=== PATIENT | female | born 1955 | race Two or more races ===

== ENCOUNTER 2019-06-27 08:53 | Inpatient (IN) | payer SELFPAY ==
[~2019-06-27] VITALS: Ht 162.6 cm; Wt 83.5 kg
[2019-06-27] VITALS (11 sets, daily range): BP systolic 97–135; BP diastolic 32–63
[2019-06-27] MEDS ORDERED: SODIUM CHLORIDE 0.9% 1,000 ML IVB ONE (09:04)
[2019-06-27] MEDS ORDERED: OCTREOTIDE ACETATE 100 MCG in SODIUM CHL 0.9% 50 ML IV ONE (09:15)
[2019-06-27] MEDS: OCTREOTIDE ACETATE 500 MCG in SODIUM CHL 0.9% 99 ML IV SCH ×2 (09:30→19:28)
[2019-06-27] MEDS ORDERED: PANTOPRAZOLE 40 MG/10 ML VIAL INJ IV ONE ×3 (09:30→12:15)
[2019-06-27 09:36] LABS: Basophils # (auto) 0.1 uL; Basophils % (auto) 0.6 % (0.0-2.0); Eosinophils # (auto) 0.4 uL; Lymphocytes # (auto) 3.4 uL
[2019-06-27 09:38] LABS: Eosinophils % (auto) 2.4 % (0.0-7.0); Hematocrit 21.2 % (36.0-46.0); Lymphocytes % (auto) 20.6 % (10.0-50.0); Mean Corpuscular Hemoglobin 26.3 pg (28.0-32.0); Mean Corpuscular Hgb Conc. 32.2 g/dL (32.0-36.0); Mean Corpuscular Volume 81.9 fL (80.0-100.0); Monocytes # (auto) 0.8 uL; Monocytes % (auto) 4.9 % (0.0-12.0); Neutrophils # (auto) 11.9 uL; Neutrophils % (auto) 71.5 % (37.0-80.0); Platelet Count (auto) 98 10^3/uL (140-450); Red Blood Cells 2.59 10^6/uL (4.0-5.20); Red Cell Distribution Width 16.2 % (11.8-14.3); White Blood Cell 16.7 10^3/uL (4.4-10.8)
[2019-06-27] MEDS ORDERED: NOREPINEPHRINE 8 MG/250ML KIT 250 ML IV ONE (09:39)
[2019-06-27 09:42] LABS: Hemoglobin 6.8 g/dL (12.2-16.2)
[2019-06-27] MEDS: NOREPINEPHRINE 8 MG/250ML KIT 250 ML IV SCH (09:47)
[2019-06-27 09:53] LABS: Albumin 2.4 g/dL (3.4-5.0); BUN/Creatinine Ratio 34.5; Calcium 8.1 mg/dL (8.5-10.1)
[2019-06-27 09:56] LABS: Bilirubin, Total 0.5 mg/dL (0.2-1.0); Total Protein 5.9 g/dL (6.4-8.2)
[2019-06-27 10:04] LABS: INR 1.18 (0.9-1.15); Partial Thromboplastin Time 36.3 sec (23.64-32.05)
[2019-06-27] MEDS ORDERED: ETOMIDATE (2MG/ML) 20ML VIAL IV ONE ×2 (10:48→11:00)
[2019-06-27] MEDS ORDERED: SUCCINYLCHOLINE CHLORIDE 20 MG/ML 10ML VIAL IV ONE ×2 (10:49→11:00)
[2019-06-27] MEDS: MIDAZOLAM DRIP 50 mg/50mL 50 ML IV SCH (11:11)
[2019-06-27] MEDS ORDERED: EPINEPHrine HCL 1 MG/10 ML SYRG ONE (11:24)
[2019-06-27] MEDS ORDERED: PROPOFOL 100 ML IV ONE (11:27)
[2019-06-27] MEDS: PROPOFOL 100 ML IV SCH (11:30)
[2019-06-27] MEDS ORDERED: MORPHINE SULF INJ 2 MG/ML SYRINGE 1ML IV PRN (11:45)
[2019-06-27] MEDS ORDERED: NITROGLYCERIN 0.4 MG SL TAB SL PRN (11:45)
[2019-06-27] MEDS ORDERED: ALBUTEROL SULF 2.5 MG/0.5ML(0.5%) NEB SOLN NEB PRN (11:45)
[2019-06-27] MEDS ORDERED: PROMETHAZINE HCL 25 MG/ML 1ML IV PRN (11:45)
[2019-06-27] MEDS ORDERED: phytonadione 5 MG in SODIUM CHL 0.9% 50 ML IV ONE (11:45)
[2019-06-27] MEDS: SODIUM CHLORIDE 0.9% 1,000 ML IV SCH ×2 (12:21→19:44)
[2019-06-27 13:48] LABS: Hemoglobin 7.4 g/dL (12.2-16.2)
[2019-06-27 13:50] LABS: Hematocrit 21.9 % (36.0-46.0)
[2019-06-27] MEDS: ALBUTEROL SULF 2.5 MG/0.5ML(0.5%) NEB SOLN NEB SCH ×3 (14:07→23:50)
[2019-06-27] MEDS: metroNIDAZOLE 500MG/100ML 100 ML IV SCH ×2 (16:32→22:08)
[2019-06-27 18:35] LABS: Hematocrit 19.6 % (36.0-46.0)
[2019-06-27 18:40] LABS: Hemoglobin 6.6 g/dL (12.2-16.2)
[2019-06-27] MEDS: PANTOPRAZOLE 40 MG/10 ML VIAL INJ IV SCH (22:15)
[2019-06-28] VITALS (11 sets, daily range): BP systolic 80–136; BP diastolic 26–53
[2019-06-28 00:48] LABS: Hematocrit 26.2 % (36.0-46.0); Hemoglobin 8.5 g/dL (12.2-16.2)
[2019-06-28] MEDS ORDERED: ACETAMINOPHEN 120 MG RECT SUPP PR ONE (03:00)
[2019-06-28] MEDS ORDERED: OCTREOTIDE ACETATE 500 MCG/ML VL ONE (03:37)
[2019-06-28] MEDS: SODIUM CHLORIDE 0.9% 1,000 ML IV SCH (03:46)
[2019-06-28] MEDS: OCTREOTIDE ACETATE 500 MCG in SODIUM CHL 0.9% 99 ML IV SCH ×3 (05:18→19:05)
[2019-06-28 06:12] LABS: Basophils # (auto) 0.1 uL; Basophils % (auto) 0.8 % (0.0-2.0); Mean Corpuscular Hgb Conc. 33.8 g/dL (32.0-36.0); Neutrophils # (auto) 9.4 uL; Nucleated Red Blood Cells % 0.1 %; Platelet Count (auto) 102 10^3/uL (140-450)
[2019-06-28 06:15] LABS: Eosinophils # (auto) 0.6 uL; Eosinophils % (auto) 4.5 % (0.0-7.0); Hematocrit 23.3 % (36.0-46.0); Hemoglobin 7.9 g/dL (12.2-16.2); Lymphocytes # (auto) 2.2 uL; Lymphocytes % (auto) 15.4 % (10.0-50.0); Mean Corpuscular Hemoglobin 27.5 pg (28.0-32.0); Mean Corpuscular Volume 81.4 fL (80.0-100.0); Monocytes # (auto) 1.7 uL; Monocytes % (auto) 12.1 % (0.0-12.0); Neutrophils % (auto) 67.2 % (37.0-80.0); Red Blood Cells 2.86 10^6/uL (4.0-5.20); Red Cell Distribution Width 15.7 % (11.8-14.3)
[2019-06-28 06:18] LABS: INR 1.17 (0.9-1.15); Partial Thromboplastin Time 36.4 sec (23.64-32.05)
[2019-06-28] MEDS: metroNIDAZOLE 500MG/100ML 100 ML IV SCH ×3 (06:19→22:12)
[2019-06-28 06:29] LABS: Albumin 2.3 g/dL (3.4-5.0); BUN/Creatinine Ratio 36.4; Calcium 7.2 mg/dL (8.5-10.1); Potassium 3.6 mmol/L (3.5-5.1)
[2019-06-28 06:32] LABS: Bilirubin, Total 1.2 mg/dL (0.2-1.0); Total Protein 5.6 g/dL (6.4-8.2)
[2019-06-28] MEDS: ALBUTEROL SULF 2.5 MG/0.5ML(0.5%) NEB SOLN NEB SCH ×2 (06:35→18:00)
[2019-06-28] MEDS: PROPOFOL 100 ML IV SCH ×4 (08:29→19:05)
[2019-06-28] MEDS: MIDAZOLAM DRIP 50 mg/50mL 50 ML IV SCH ×3 (08:33→16:33)
[2019-06-28] MEDS: LEVOFLOXACIN 500MG 100 ML IV SCH (10:06)
[2019-06-28] MEDS: PANTOPRAZOLE 40 MG/10 ML VIAL INJ IV SCH ×2 (10:06→22:12)
--- NOTE | 2019-06-28 11:30 | NUR ---
WOUND CARE NOTE: PATIENT ADMITTED TO [facility] WITH DIAGNOSIS OF UPPER GI BLEED, PNA, HYPOTENSION. CURRENT BUCKY SCORE IS 10. SHE IS INTUBATED, SEDATED. SPECIALTY AIR BED HAS BEEN ORDERED. PATIENT TO BE PLACED, PENDING DELIVERY BY ROYA MAO. PATIENT IS WOUND FREE AT THIS TIME PER BEDSIDE NURSEESTRELLA. SKIN/WOUND CARE PLAN IMPLEMENTED. RECOMMEND: FREQUENT TURN SCHEDULE Q 2 HOURS, PRN CONDITION PERMITS, WITH PRESSURE REDISTRIBUTION USING PILLOWS/WEDGES, BID/PRN APPLICATION WITH MOISTURE BARRIER CREAM, OPTIFOAM GENTLE SACRAL DRESSING PREVENTATIVE, SPECIALTY AIR MATTRESS, DIETARY CONSULT FOR LOW BUCKY, CONTINUED MONITORING BY WOUND CARE TEAM.
[2019-06-28] MEDS ORDERED: VANCOMYCIN PER PHARMACY 0 MG IV SCH (12:00)
[2019-06-28] MEDS ORDERED: VANCOMYCIN 1GM/250ML 250 ML IV ONE (12:15)
[2019-06-28] MEDS: D5W/SOD CHL 0.45% 1,000 ML IV SCH (13:10)
[2019-06-28] MEDS: NOREPINEPHRINE 8 MG/250ML KIT 250 ML IV SCH ×2 (13:10→18:12)
[2019-06-28] MEDS ORDERED: ACETAMINOPHEN 650 MG RECT SUPP PR ONE (17:43)
[2019-06-28] MEDS ORDERED: ACETAMINOPHEN 650 mg PER 20 mL UD PO PRN (17:45)
[2019-06-28 19:48] LABS: Basophils # (auto) 0.1 uL; Eosinophils # (auto) 0.7 uL; Hemoglobin 7.7 g/dL (12.2-16.2)
[2019-06-28 19:51] LABS: Basophils % (auto) 0.7 % (0.0-2.0); Eosinophils % (auto) 4.5 % (0.0-7.0); Hematocrit 22.7 % (36.0-46.0); Lymphocytes # (auto) 2.4 uL; Lymphocytes % (auto) 15.7 % (10.0-50.0); Mean Corpuscular Hemoglobin 27.7 pg (28.0-32.0); Mean Corpuscular Hgb Conc. 34.1 g/dL (32.0-36.0); Mean Corpuscular Volume 81.3 fL (80.0-100.0); Monocytes # (auto) 2.2 uL; Monocytes % (auto) 14.5 % (0.0-12.0); Neutrophils % (auto) 64.6 % (37.0-80.0); Nucleated Red Blood Cells % 0.3 %; Platelet Count (auto) 86 10^3/uL (140-450); Red Blood Cells 2.79 10^6/uL (4.0-5.20); Red Cell Distribution Width 15.8 % (11.8-14.3); White Blood Cell 15.4 10^3/uL (4.4-10.8)
[2019-06-29] VITALS (12 sets, daily range): BP systolic 89–109; BP diastolic 36–61
[2019-06-29] MEDS: ALBUTEROL SULF 2.5 MG/0.5ML(0.5%) NEB SOLN NEB SCH ×4 (00:36→18:25)
[2019-06-29] MEDS: D5W/SOD CHL 0.45% 1,000 ML IV SCH ×2 (03:31→13:18)
[2019-06-29] MEDS: metroNIDAZOLE 500MG/100ML 100 ML IV SCH ×3 (06:38→22:49)
[2019-06-29 07:35] LABS: Basophils # (auto) 0.1 uL; Eosinophils # (auto) 0.9 uL; Eosinophils % (auto) 5.5 % (0.0-7.0); Hemoglobin 7.7 g/dL (12.2-16.2)
[2019-06-29 07:39] LABS: Basophils % (auto) 0.6 % (0.0-2.0); Hematocrit 22.8 % (36.0-46.0); Lymphocytes # (auto) 2.7 uL; Lymphocytes % (auto) 16.5 % (10.0-50.0); Mean Corpuscular Hemoglobin 27.9 pg (28.0-32.0); Mean Corpuscular Hgb Conc. 33.9 g/dL (32.0-36.0); Mean Corpuscular Volume 82.4 fL (80.0-100.0); Monocytes # (auto) 2.5 uL; Monocytes % (auto) 14.9 % (0.0-12.0); Neutrophils # (auto) 10.4 uL; Neutrophils % (auto) 62.5 % (37.0-80.0); Nucleated Red Blood Cells % 0.2 %; Platelet Count (auto) 90 10^3/uL (140-450); Red Blood Cells 2.77 10^6/uL (4.0-5.20); Red Cell Distribution Width 16.3 % (11.8-14.3); White Blood Cell 16.6 10^3/uL (4.4-10.8)
[2019-06-29 07:53] LABS: Calcium 7.2 mg/dL (8.5-10.1); Potassium 3.6 mmol/L (3.5-5.1)
[2019-06-29 07:58] LABS: BUN/Creatinine Ratio 20.2; Bilirubin, Total 1.1 mg/dL (0.2-1.0); Total Protein 5.5 g/dL (6.4-8.2)
[2019-06-29] MEDS: VANCOMYCIN 1GM/250ML 250 ML IV SCH (09:00)
[2019-06-29] MEDS: PROPOFOL 100 ML IV SCH ×3 (09:15→21:20)
[2019-06-29] MEDS: LEVOFLOXACIN 500MG 100 ML IV SCH (10:04)
[2019-06-29] MEDS: PANTOPRAZOLE 40 MG/10 ML VIAL INJ IV SCH ×2 (10:10→22:49)
[2019-06-29] MEDS: MIDAZOLAM DRIP 50 mg/50mL 50 ML IV SCH ×3 (10:11→20:25)
[2019-06-29] MEDS: OCTREOTIDE ACETATE 500 MCG in SODIUM CHL 0.9% 99 ML IV SCH ×2 (13:19→19:42)
[2019-06-29] MEDS: LACTULOSE 20Gm/30ML SOLN PR SCH ×3 (14:17→23:50)
--- NOTE | 2019-06-29 14:47 | NUR ---
Nutrition consult/assessment Notes please see attached link for complete assessment Est. Needs ABW 76 [id number] kcal (20-23 kcal/kgBW), 45-61 gms pro (0.6-0.8 gms/kgBW r/t elev ammonia severe hypoalb). Will continue to monitor pertinent labs and reassess nutrient need prn Addendum: 06/29/19 at [address] Amended: Links added.
[2019-06-29 18:33] LABS: Hematocrit 25.8 % (36.0-46.0); Hemoglobin 8.4 g/dL (12.2-16.2)
[2019-06-29] MEDS: NOREPINEPHRINE 8 MG/250ML KIT 250 ML IV SCH (19:42)
[2019-06-29] MEDS: ACETAMINOPHEN 650 MG RECT SUPP PR PRN (21:15)
[2019-06-29 22:35] LABS: Hematocrit 23.5 % (36.0-46.0); Hemoglobin 7.8 g/dL (12.2-16.2)
[2019-06-30] VITALS (21 sets, daily range): BP systolic 89–133; BP diastolic 37–68
[2019-06-30] MEDS: VANCOMYCIN 1GM/250ML 250 ML IV SCH ×2 (00:52→20:13)
[2019-06-30] MEDS: NOREPINEPHRINE 8 MG/250ML KIT 250 ML IV SCH ×4 (01:33→16:30)
[2019-06-30] MEDS: MIDAZOLAM DRIP 50 mg/50mL 50 ML IV SCH ×3 (01:34→11:25)
[2019-06-30] MEDS: PROPOFOL 100 ML IV SCH ×3 (01:34→11:26)
[2019-06-30] MEDS ORDERED: OCTREOTIDE ACETATE 500 MCG/ML VL ONE (02:18)
[2019-06-30] MEDS: ALBUTEROL SULF 2.5 MG/0.5ML(0.5%) NEB SOLN NEB SCH ×4 (02:38→18:35)
[2019-06-30] MEDS: D5W/SOD CHL 0.45% 1,000 ML IV SCH ×2 (03:02→19:04)
[2019-06-30] MEDS: OCTREOTIDE ACETATE 500 MCG in SODIUM CHL 0.9% 99 ML IV SCH ×2 (03:06→13:28)
[2019-06-30 05:29] LABS: Basophils # (auto) 0.1 uL; Eosinophils # (auto) 0.8 uL; Neutrophils # (auto) 11.9 uL; Neutrophils % (auto) 63.6 % (37.0-80.0); White Blood Cell 18.8 10^3/uL (4.4-10.8)
[2019-06-30 05:34] LABS: Basophils % (auto) 0.4 % (0.0-2.0); Eosinophils % (auto) 4.3 % (0.0-7.0); Hematocrit 23.6 % (36.0-46.0); Hemoglobin 7.9 g/dL (12.2-16.2); Lymphocytes # (auto) 3.1 uL; Lymphocytes % (auto) 16.7 % (10.0-50.0); Mean Corpuscular Hemoglobin 27.8 pg (28.0-32.0); Mean Corpuscular Hgb Conc. 33.7 g/dL (32.0-36.0); Mean Corpuscular Volume 82.7 fL (80.0-100.0); Monocytes # (auto) 2.8 uL; Nucleated Red Blood Cells % 0.2 %; Platelet Count (auto) 96 10^3/uL (140-450); Red Blood Cells 2.85 10^6/uL (4.0-5.20); Red Cell Distribution Width 16.6 % (11.8-14.3)
[2019-06-30 05:58] LABS: Albumin 1.9 g/dL (3.4-5.0); BUN/Creatinine Ratio 15.1; Calcium 6.9 mg/dL (8.5-10.1); Potassium 3.9 mmol/L (3.5-5.1); Total Protein 5.4 g/dL (6.4-8.2)
[2019-06-30] MEDS: metroNIDAZOLE 500MG/100ML 100 ML IV SCH ×3 (06:08→22:48)
[2019-06-30] MEDS: LACTULOSE 20Gm/30ML SOLN PR SCH ×3 (07:47→20:12)
[2019-06-30] MEDS: PANTOPRAZOLE 40 MG/10 ML VIAL INJ IV SCH ×2 (09:43→22:48)
[2019-06-30] MEDS: LEVOFLOXACIN 500MG 100 ML IV SCH (09:43)
[2019-06-30] MEDS: ACETAMINOPHEN 650 MG RECT SUPP PR PRN (16:31)
--- NOTE | 2019-06-30 20:10 | NUR ---
Admit to ICU from ER on vent BACA,GRAEMEAadmitted to ICU via gurney on rod buster, intubated and being bagged by Respiratory Therapist. Patient transfered to bed, connected to mechanical ventilator by therapist, VICTOR M at bedside. Patient connected to ICU monitoring.
--- NOTE | 2019-06-30 20:15 | NUR ---
ASSESS RECEIVED PT ON MECHANICAL VENTILATOR ON NO SEDATION. PT BREATHING OVER VENTILATOR IN HIGH 30'S BUT DOES NOT AWAKEN AND DOES NOT RESPOND TO ANY NOXIOUS STIMULI. HYPOACTIVE COUGH/GAG. PUPILS ARE 4 SLUGGISH, ROUND AND REACTIVE TO LIGHT. FULL ASSESSMENT DONE, SEE INTERVENTIONS. ABDOMEN LARGE, ROUND AND FIRM WITH HYPOACTIVE BOWEL SOUNDS. FLEXI- SEAL IN PLACE WITH DARK BROWN/REDDISH LIQUID STOOL DRAINING. DOW CATHETER IN PLACE DRAINING TO GRAVITY, SECURED BELOW BLADDER AND FREE OF KINKS. PT ON LEVOPHED GTT AT 27MCG/HR INFUSING THROUGH LEFT SUBCLAVIAN TLC. PT ALSO WITH RIGHT UPPER MIDLINE. SKIN INTACT. NON-BLANCHABLE REDNESS NOTED TO SACRAL AREA, Z-GUARD APPLIED AND OPTIFOAM APPLIED. ORAL CARE RENDERED. ALL BONY PROMINENCES OFFLOADED. NO FAMILY AT BEDSIDE. BED LOCKED IN LOWEST POSITION, PT IN FULL VIEW OF RN. NO S/S OF PAIN INDICATED.
[2019-06-30 21:23] LABS: Hematocrit 24.4 % (36.0-46.0)
[2019-06-30 21:24] LABS: Hemoglobin 8.2 g/dL (12.2-16.2)
[2019-07-01] VITALS (102 sets, daily range): BP systolic 81–169; BP diastolic 38–94
[2019-07-01] MEDS: ALBUTEROL SULF 2.5 MG/0.5ML(0.5%) NEB SOLN NEB SCH ×4 (00:19→18:25)
[2019-07-01] MEDS ORDERED: OCTREOTIDE ACETATE 100 MCG/ML VL ONE (00:39)
[2019-07-01] MEDS: OCTREOTIDE ACETATE 500 MCG in SODIUM CHL 0.9% 99 ML IV SCH ×2 (00:52→13:27)
--- NOTE | 2019-07-01 02:30 | NUR ---
HOSPITALIST PAGED; AWAITING RETURN CALL. PT'S BLOOD PRESSURE IS IN 80'S, LEVOPHED GTT MAXED
[2019-07-01 04:08] LABS: Basophils # (auto) 0.1 uL; Mean Corpuscular Hgb Conc. 33.7 g/dL (32.0-36.0); Platelet Count (auto) 116 10^3/uL (140-450)
[2019-07-01 04:11] LABS: Basophils % (auto) 0.8 % (0.0-2.0); Eosinophils # (auto) 0.5 uL; Eosinophils % (auto) 3.1 % (0.0-7.0); Hemoglobin 7.7 g/dL (12.2-16.2); Lymphocytes % (auto) 19.1 % (10.0-50.0); Mean Corpuscular Volume 83.3 fL (80.0-100.0); Nucleated Red Blood Cells % 0.3 %; Red Blood Cells 2.76 10^6/uL (4.0-5.20); White Blood Cell 15.7 10^3/uL (4.4-10.8)
[2019-07-01 04:31] LABS: Calcium 7.2 mg/dL (8.5-10.1); Potassium 4.3 mmol/L (3.5-5.1)
[2019-07-01 04:35] LABS: Albumin 1.9 g/dL (3.4-5.0); BUN/Creatinine Ratio 15.2
[2019-07-01 04:38] LABS: Bilirubin, Total 1.2 mg/dL (0.2-1.0); Total Protein 5.6 g/dL (6.4-8.2)
--- NOTE | 2019-07-01 04:51 | NUR ---
ELIMINATION/MEDICATION ADMINISTERED LACTULOSE PER MD ORDER VIA RECTALLY AND RETAINED FOR 30 MINS. BLOOD MIXED IN WITH LIQUID STOOL SEEN DRAINING OUT.
[2019-07-01] MEDS: LACTULOSE 20Gm/30ML SOLN PR SCH ×4 (05:10→18:30)
[2019-07-01] MEDS: metroNIDAZOLE 500MG/100ML 100 ML IV SCH (06:00)
--- NOTE | 2019-07-01 07:16 | NUR ---
End of shift note report given to day shift RN to assume care
[2019-07-01] MEDS: NOREPINEPHRINE 8 MG/250ML KIT 250 ML IV SCH ×3 (08:00→18:39)
--- NOTE | 2019-07-01 08:51 | NUR ---
FAMILY AT BEDSIDE PATIENT'S BROTHER EVETTE AND MOTHER AT BEDSIDE, BOTH UPDATED ON PATIENT'S STATUS. MEDICAL HISTORY OBTAINED BEST FAMILY CAN PROVIDE, EVETTE REPORTED THAT THEY FOUND OUT PATIENT WAS SICK ABOUT 3-4 MONTHS AGO AND FEEL THAT "PATIENT WAS NOT TAKING HER MEDICATION BECAUSE SHE WOULD TELL US IT MAKES HER FEEL SICK". EVETTE ALSO REPORTED THAT PATIENT MOVED IN TO LIVE WITH HE AND HIS ABOUT ONE MONTH AGO DUE TO DECREASE IN PAY FROM [facility] SHE RECENTLY RETIRED DUE TO ILLNESS. EVETTE ALSO NOTIFIED THIS NURSE THAT HE WILL BRING HOME MEDICATIONS TO UPDATE MEDICATION RECONCILIATION. ICU PAMPHLET PROVIDED AND REVIEWED WITH FAMILY, BOTH VERBALIZED UNDERSTANDING.
--- NOTE | 2019-07-01 09:15 | NUR ---
CONTACT PULMONOLOGY SPOKE WITH DR FLYNN, UPDATED ON PATIENT'S STATUS AND MORNING LABS, VS, DRIPS, VENT SETTINGS. ORDERS FOR ARTERIAL LINE INSERTION RECEIVED. DR FLYNN NOTIFIED NURSE "ER PHYSICIAN CAN INSERT IF NOT, I WILL INSERT WHEN I ARRIVE TO ICU". NO VENT CHANGES RECEIVED AT THIS TIME.
[2019-07-01] MEDS: PANTOPRAZOLE 40 MG/10 ML VIAL INJ IV SCH ×2 (10:05→22:59)
[2019-07-01] MEDS: LEVOFLOXACIN 500MG 100 ML IV SCH (10:05)
[2019-07-01] MEDS: D5W/SOD CHL 0.45% 1,000 ML IV SCH (10:06)
--- NOTE | 2019-07-01 11:00 | NUR ---
PULMONOLOGY AT BEDSIDE/ARTERIAL LINE INSERTION DR FLYNN UPDATED ON PATIENT'S STATUS, NO VENT CHANGE ORDERS RECEIVED AT THIS TIME. ARTERIAL LINE INSERTION VIA STERILE TECHNIQUE BY DR FLYNN TO RIGHT WRIST AREA. ARTERIAL LINE SECURED AND CONNECTED TO BEDSIDE MONITOR, LEVOPHED DECREASED TO 25 MCG/HR. WILL CONTINUE TO MONITOR.
[2019-07-01] MEDS: PROPOFOL 100 ML IV SCH (11:37)
--- NOTE | 2019-07-01 11:47 | NUR ---
HOSPITALIST/FAMILY DR ZELAYA AT BEDSIDE, UPDATED ON PATIENT'S STATUS INCLUDING DRIPS AND NEURO STATUS AND PATIENT CONCERN OF ABDOMINAL SWELLING. DR ZELAYA DISCUSSED PLAN OF CARE WITH PATIENT'S DAUGHTER GALLO AND PATIENT'S MOTHER AT BEDSIDE. ALL VERBALIZED UNDERSTANDING. ORDERS RECEIVED AND WILL CARRIED OUT. NEUROLOGY CONSULT CALLED IN BY BUSHEL GIRL FOR DR VUONG WITH PBX.
--- NOTE | 2019-07-01 12:23 | NUR ---
Nutrition Follow-up Notes Wt.: 80.0 kg today. Pt's intubated, non-sedated, no immediate family member at bedside except for RN during rounds this morning. Pt's s/p EGD with banding 06/27/19, currently on NPO, no order for alternate nutrition support yet at this time, per nursing. Noted pt's for active Wound and Neurology consults. Est. Needs ABW 76 [id number] kcal (20-23 kcal/kgBW), 45-61 gms pro (0.6-0.8 gms/kgBW r/t elev ammonia severe hypoalb). Will continue to monitor pertinent labs and reassess nutrient need prn Labs: Gluc 154 H, Cl 111 H, BUN 24 H, Ca 7.2 L, Tot oskar 1.2 H, AST 39 H, Ammona 71 H, Tpro 5.6 L, Alb 1.9 L Skin: Andrew scale 10, high risk, skin intact per gamma ray operator. GI: Pt had 250 ml stool output yesterday per gamma ray operator. PES: Increased nutrient needs r/t acute/chronic medical condition aeb intubated, sedated with order of NPO Altered nutrition related lab values r/t current/chronic medical condition aeb elev ammonia, severe hypoalb, hyperglcyem,ia, hypocalcemia Obesity r/t food intake more than body requirement aeb 147% IBW, BMI 30.23 kg/m2 and increased body adiposity Will continue to monitor NPO status, skin status, pertinent labs and weight trend. F/u in 2 to 3 days. Rec.: 1.) If still NPO with GIT's working, consider EN support with Jevity 1.2 Abdelrahman @ 60 ml/hr goal rate as tolerated if medically appropriate. 2.) If Albumin continues trending down with improved ammonia level, consider Prostat 1 pkt BID. 3.) If still NPO, GIT's not working, consider PN support if medically appropriate. 4.) Refer pt to RD for further nutrition education and weight monitoring upon discharge. 5.) Continue current plan of care.
--- NOTE | 2019-07-01 12:40 | NUR ---
WOUND CARE NOTE: IN TO SEE PATIENT AT THIS TIME FOR NEW SKIN INTEGRITY ISSUE. PATIENT CONTINUES TO BE INTUBATED, SEDATED. SHE IS NOW IN ICU, BED 104A. SHE HAS CURRENT BUCKY SCORE OF 10. PATIENT IS NOTED TO HAVE INTACT SKIN. SHE DOES HAVE AN INTERTRIGINOUS RASH NOTED TO THE MEDIAL SACRUM/BUTTOCKS. SKIN IS DARK RED, INTACT. ANTIFUNGAL CLEAR OINTMENT APPLIED AT THIS TIME. NEW WOUND PHOTO TAKEN FOR REFERENCE. RECOMMEND: BID/PRN ANTIFUNGAL CLEAR, CONTINUATION WITH ALL WOUND CARE ORDERS PREVIOUSLY PRESCRIBED BY MD. WOUND CARE TEAM WILL CONTINUE TO MONITOR. Addendum: 07/01/19 at 1541 by Alexia Landry RN Amended: Links added.
[2019-07-01] MEDS: PHENYLEPHRINE INJ 20 MG in SODIUM CHL 0.9% 250 ML IV SCH ×2 (13:31→21:51)
--- NOTE | 2019-07-01 14:15 | NUR ---
LACTULOSE RECEIVED FROM PHARMACY CONTACT PHARMACY EARLIER TO REQUEST LACTULOSE THAT WAS DUE AT NOON. RECEIVED AT THIS TIME AND WILL ADMINISTER.
[2019-07-01] MEDS ORDERED: CLINIMIX PER PHARMACY 0 ML IV SCH (16:00)
--- NOTE | 2019-07-01 19:03 | NUR ---
END OF SHIFT NOTE PATIENT RESTING IN BED, UNRESPONSIVE - LACTULOSE BEING ADMINISTERED, FLEXI-SEAL CLAMPED AND WILL ENDORSE UNCLAMPING OF FLEXI-SEAL AND CONTINUED CARE TO CONDUIT MECHANIC RN.
--- NOTE | 2019-07-01 19:20 | NUR ---
RECEIVED REPORT FROM DAY RN, PT. IN BED ORALLY INTUBATED WITH ETT #7.5, 21 CM @ THE LIP, CONNECTED TO A MECHANICAL VENT AT ORDERED SETTINGS, LEVO INFUSING WELL, DOW IN AND DRAINING WELL, RECTAL TUBE IN PLACED WITH DARK COLORED LOOSE STOOL. 2030- LARGE LOOSE BLACKISH STOOLS WITH MUCOID PARTICLES, CLEANED PT, KEPT HER CLEAN AND DRY.REPOSITIONED.
[2019-07-01] MEDS ORDERED: AMINO ACID INFUSION IN D10W 1,000 ML IV ONE (20:00)
[2019-07-02] VITALS (103 sets, daily range): BP systolic 78–156; BP diastolic 42–300
--- NOTE | 2019-07-02 | NUR ---
0000-LACTULOSE ENEMA GIVEN NV, HAD LARGE BLACKISH LOOSE STOOLS. 0200- CLEANED HER, KEPT HER CLEAN AND DRY., REPOSITIONED.
[2019-07-02] MEDS: LACTULOSE 20Gm/30ML SOLN PR SCH ×4 (00:22→18:15)
[2019-07-02] MEDS: ALBUTEROL SULF 2.5 MG/0.5ML(0.5%) NEB SOLN NEB SCH ×4 (00:36→18:32)
[2019-07-02] MEDS: OCTREOTIDE ACETATE 500 MCG in SODIUM CHL 0.9% 99 ML IV SCH ×3 (00:52→21:14)
--- NOTE | 2019-07-02 04:00 | NUR ---
AM CARE DONE, REPOSITIONED.
[2019-07-02 04:06] LABS: Hemoglobin 7.5 g/dL (12.2-16.2)
[2019-07-02 04:10] LABS: Hematocrit 21.8 % (36.0-46.0); Mean Corpuscular Hemoglobin 28.4 pg (28.0-32.0); Mean Corpuscular Hgb Conc. 34.3 g/dL (32.0-36.0); Mean Corpuscular Volume 82.9 fL (80.0-100.0); Platelet Count (auto) 88 10^3/uL (140-450); Red Blood Cells 2.63 10^6/uL (4.0-5.20); Red Cell Distribution Width 17.4 % (11.8-14.3); White Blood Cell 10.1 10^3/uL (4.4-10.8)
[2019-07-02 04:31] LABS: Potassium 4.2 mmol/L (3.5-5.1)
[2019-07-02 04:39] LABS: % Iron Saturation 8.1 % (15-50); Albumin 1.8 g/dL (3.4-5.0); BUN/Creatinine Ratio 21.6; Bilirubin, Total 0.9 mg/dL (0.2-1.0); Calcium 7.4 mg/dL (8.5-10.1); Phosphorus 1.6 mg/dL (2.5-4.90); Pre Albumin 5.2 mg/dL (20.0-40.0); Total Protein 5.5 g/dL (6.4-8.2)
[2019-07-02 04:42] LABS: Basophils % (manual) 0 (0.0-2.0); Blast Cells 0; Metamyelocytes % 0; Myelocytes % 0; Promyelocytes % 0; Reactive Lymphocytes 0
[2019-07-02 05:00] LABS: Band Neutrophils % (manual) 28; Eosinophils % (manual) 10 (0-7); Lymphocytes % (manual) 10 (10.0-50.0); Monocytes % (manual) 7 (0-12)
--- NOTE | 2019-07-02 07:00 | NUR ---
REPORT GIVEN TO DIVYA VELASQUEZ.
--- NOTE | 2019-07-02 07:30 | NUR ---
OPENING SHIFT NOTE/NEUROLOGY AT BEDSIDE REPORT RECEIVED FROM ETHICS INSTRUCTOR RN, MORNING ASSESSMENT PERFORMED AND DOCUMENTED. 63 YEAR OLD FEMALE LAYING IN BED, MECHANICALLY VENTILATED, NOT SEDATED, UNRESPONSIVE. HOB ELEVATED GREATER THAN 30 DEGREES. ETT SECURED WITH RAQUEL, AMBU BAG AT BEDSIDE. ORAL CRE AND SUCTION RENDERED - DUDLEY +4 AND BRISK WITH NO COUGH OR GAG NOTED. NO PURPOSEFUL MOVEMENTS NOTED. NO NGT IN PLACE PER DR MILLER'S ORDER DUE TO ESOPHAGEAL VARICES S/P VARICES BANDING. AROLDO MIDLINE FLUSHED WITH SALINE AND LEFT SUBCLAVIAN CENTRAL LINE PATENT WITH NO REDNESS, SWELLING OR DRAINING NOTED TO SITES (SEE IV SPREADSHEET FOR DETAILS). ABDOMEN REMAINS DISTENDED AND LARGE WITH HYPERACTIVE BOWEL SOUNDS, ALL MDS AWARE, DOW CATHETER INTACT AND DRAINING CLEAR/DARK PAUL URINE. FLEXI-SEAL CLAMPED SECONDARY TO LACTULOSE ADMINISTRATION BY ETHICS INSTRUCTOR RN - WILL UNCLAMPED RECOMMENDED PER PROTOCOL. SCD'S TO BILATERAL LOWER EXTREMITY ACTIVE, BED IN LOWEST POSITION, SIDE RAILS UP, BED BRAKES SET. FALL AND SAFETY PRECAUTIONS IN PLACE. WILL CONTINUE TO MONITOR. NEUROLOGY AT BEDSIDE DR VUONG AT BEDSIDE WHILE ASSESSMENT WAS BEING PERFORMED, DR VUONG UPDATED ON PATIENT'S STATUS AND UNRESPONSIVE WITH NO GAG OR COUGH REFLEX NOTED BUT DUDLEY +[address] VUONG PERFORMED ASSESSMENT HIMSELF WELL AND VERBALIZED UNDERSTANDING. DR VUONG AWARE OF PENDING HEAD CT PREVIOUSLY ORDERED, NO NEW VERBAL ORDERS RECEIVED AT THIS TIME.
--- NOTE | 2019-07-02 08:15 | NUR ---
COMFORT/BM - NO ABG AFTER UNCLAMPING FLEXI-SEAL, PATIENT CLEANSED FOR LARGE AMOUNT OF CLEAR/SEDIMENT DARK GREEN STOOL. COMPLETE BEDDING CHANGED, PATIENT TOLERATED WELL. WILL CONTINUE TO MONITOR. AGB - PER Lindsay ORR. "EMMANUEL WAS SENT OUT THAT DR FLYNN DOES NOT WANT DAILY CXR AND/OR ABG". THIS NURSE CANCELLED ABG ORDERED. PER DR FLYNN' NOTE YESTERDAY (07/01/19) HE ONLY DOCUMENTED "NO CXR ONLY IF CHANGES NOTED - NO MENTION OF NO ABG AND THIS NURSE NOT AWARE OF ANY EMMANUEL REGARDING NO DAILY ABG/CXR PER DR FLYNN.
[2019-07-02] MEDS ORDERED: ceFAZolin 1GM/50ML 50 ML IV SCH (09:00)
--- NOTE | 2019-07-02 09:34 | NUR ---
FAMILY AT BEDSIDE UPDATED ON PATIENT'S STATUS. GALLO VERBALIZED UNDERSTANDING. WILL CONTINUE TO MONITOR. Addendum: 07/02/19 at 1003 by Annette Nicole RN PATIENT'S DAUGHTER GALLO AWARE OF PENDING HEAD C.T.
--- NOTE | 2019-07-02 09:59 | NUR ---
PATIENT OFF FLOOR/R.T. CHANGE PATIENT TAKEN OFF FLOOR TO RADIOLOGY FOR ORDERED HEAD C.T. VIA GURNEY AND CONNECTED TO PORTABLE MONITOR AND VENTILATOR, ACCOMPANIED BY Uriah TIM AND Nataliia ORR AND SLIDE MACHINE TENDER. NO DISTRESS NOTED, RESPIRATIONS EVEN AND UNLABORED. WILL CONTINUE TO MONITOR UPON RETURN TO FLOOR. Lindsay VARELA. CHARGE CONFIRMED TO THIS NURSE THAT "DR FLYNN DOES NOT WANT DAILY ABG AND/OR CXR HE ONLY WANTS BEDSIDE Co2 MONITORING". NICHOLE AWARE THAT ABG WAS CANCELLED. WILL VERIFY WITH DR FLYNN UPON ROUNDING.
--- NOTE | 2019-07-02 09:59 | NUR ---
RT Transport Note: Patient transported to CT with RON GALINDO. Patient transported to and from procedure on ventilator with previous ordered settings. Patient on front desk monitor with alarms set and audible, ambu-bag/mask connected to 02 tank. Patient returned to room with no adverse reaction noted. Transport completed without incident.
[2019-07-02] MEDS ORDERED: TPN PER PHARMACY 0 ML IV SCH (10:00)
[2019-07-02] MEDS ORDERED: ceFAZolin 2 GM in D5W 5% 100 ML IV SCH (10:00)
--- NOTE | 2019-07-02 10:30 | NUR ---
PATIENT RETURN TO FLOOR CONNECTED TO BEDSIDE MONITOR, VSS STABLE AND DOCUMENTED. PATIENT ADJUSTED FOR COMFORT. CONTINUED MONITORING.
[2019-07-02] MEDS: MIDAZOLAM DRIP 50 mg/50mL 50 ML IV SCH (10:49)
[2019-07-02] MEDS ORDERED: IRON SUCROSE COMPLEX 200 MG in SODIUM CHL 0.9% 100 ML IV SCH (11:00)
[2019-07-02] MEDS ORDERED: ceFAZolin 1GM/50ML 50 ML IV ONE (11:00)
[2019-07-02] MEDS: PANTOPRAZOLE 40 MG/10 ML VIAL INJ IV SCH ×2 (11:00→22:00)
[2019-07-02] MEDS ORDERED: SODIUM PHOSP 20MEQ(15MMOL) IN NS 100 ML IV ONE (11:00)
--- NOTE | 2019-07-02 11:00 | NUR ---
HOSPITALIST AT BEDSIDE DR ZELAYA UPDATED ON PATIENT'S STATUS, MORNING LABS AND FAMILY CONTINUED CONCERN FOR ENLARGED ABDOMEN. DR ZELAYA DISCUSSED PLAN OF CARE WITH PATIENT'S DAUGHTER GALLO AT BEDSIDE, GALLO VERBALIZED UNDERSTANDING. ORDERS RECEIVED AND WILL BE CARRIED OUT.
[2019-07-02] MEDS ORDERED: FUROSEMIDE 40 MG/4 ML VIAL IV ONE (11:15)
[2019-07-02] MEDS ORDERED: DEXTROSE (50%) 50ML SYRG IV PRN (11:30)
[2019-07-02] MEDS: PROPOFOL 100 ML IV SCH (11:37)
--- NOTE | 2019-07-02 11:43 | NUR ---
WARD SERVICE SUPERVISOR AT BEDSIDE FAMILY AWARE.
[2019-07-02] MEDS: IRON SUCROSE COMPLEX 200 MG in SODIUM CHL 0.9% 100 ML IV SCH (11:46)
--- NOTE | 2019-07-02 12:00 | NUR ---
BS 136 NO SLIDING SCALE PER HOSPITALIST
[2019-07-02] MEDS: ACCU-CHEK COMFORT CURVE STRIP VI SCH ×2 (12:01→18:00)
--- NOTE | 2019-07-02 13:55 | NUR ---
FAMILY AT BEDSIDE PATIENT'S BROTHER EVETTE AT BEDSIDE, UPDATED ON PATIENT'S STATUS. EVETTE VERBALIZED UNDERSTANDING, EVETTE ALSO NOTIFIED NURSE THAT HE THREW AWAY SOME WINE THAT SHE HAD IN HER ROOM.
--- NOTE | 2019-07-02 14:00 | NUR ---
DR MILLER AT BEDSIDE UPDATED ON PATIENT'S STATUS AND FAMILY CONCERN OF ABDOMEN. DR MILLER AWARE OF ABDOMINAL US ORDERED BY DR ZELAYA AND PENDING RESULTS WELL AMMONIA LEVEL. DR MILLER ORDERED LACTULOSE TO CONTINUE TO BE ADMINISTERED.
[2019-07-02] MEDS: PHENYLEPHRINE INJ 20 MG in SODIUM CHL 0.9% 250 ML IV SCH ×2 (14:31→22:51)
[2019-07-02] MEDS: ceFAZolin 2 GM in D5W 5% 100 ML IV SCH ×2 (14:45→22:00)
[2019-07-02] MEDS: NOREPINEPHRINE 8 MG/250ML KIT 250 ML IV SCH ×2 (15:15→20:27)
--- NOTE | 2019-07-02 15:24 | NUR ---
Consult for Injection Mold Technician for no insurance. At this time social media marketing analyst and medi-vicki inside account representative are waiting for paperwork from the family.
--- NOTE | 2019-07-02 18:00 | NUR ---
BS 112
--- NOTE | 2019-07-02 19:56 | NUR ---
END OF SHIFT NOTE PATIENT LAYING IN BED, MECHANICALLY VENTILATED, UNRESPONSIVE, VSS AND DOCUMENTED, NO DISTRESS NOTED. PATIENT CARE ENDORSED TO ELECTRICAL ENGINEERING DESIGNER RN.
[2019-07-02] MEDS ORDERED: TPN PER PHARMACY IV NR ×9 (20:00)
[2019-07-03] VITALS (100 sets, daily range): BP systolic 74–152; BP diastolic 36–81
[2019-07-03] MEDS: ALBUTEROL SULF 2.5 MG/0.5ML(0.5%) NEB SOLN NEB SCH ×4 (00:12→18:29)
[2019-07-03] MEDS: LACTULOSE 20Gm/30ML SOLN PR SCH ×4 (00:18→17:00)
[2019-07-03] MEDS: ACCU-CHEK COMFORT CURVE STRIP VI SCH ×4 (00:18→17:42)
[2019-07-03 04:18] LABS: Albumin 1.8 g/dL (3.4-5.0); Calcium 7.1 mg/dL (8.5-10.1); Magnesium 1.9 mg/dL (1.6-2.6); Potassium 3.3 mmol/L (3.5-5.1)
[2019-07-03 04:22] LABS: BUN/Creatinine Ratio 23.3; Bilirubin, Total 0.6 mg/dL (0.2-1.0); Phosphorus 2.3 mg/dL (2.5-4.90); Total Protein 5.5 g/dL (6.4-8.2)
[2019-07-03] MEDS: ceFAZolin 2 GM in D5W 5% 100 ML IV SCH ×3 (05:30→22:35)
[2019-07-03] MEDS: PHENYLEPHRINE INJ 20 MG in SODIUM CHL 0.9% 250 ML IV SCH ×3 (07:11→23:51)
[2019-07-03] MEDS ORDERED: POTASSIUM PHOSP 22MEQ(15MMOLE) in NS 100 ML IV ONE (09:00)
[2019-07-03] MEDS: OCTREOTIDE ACETATE 500 MCG in SODIUM CHL 0.9% 99 ML IV SCH (09:04)
[2019-07-03] MEDS: PANTOPRAZOLE 40 MG/10 ML VIAL INJ IV SCH ×2 (09:04→22:35)
[2019-07-03] MEDS: PROPOFOL 100 ML IV SCH (09:04)
[2019-07-03] MEDS: MIDAZOLAM DRIP 50 mg/50mL 50 ML IV SCH (09:04)
[2019-07-03] MEDS ORDERED: SODIUM CHLORIDE 0.9% 1,000 ML IV ONE (10:00)
[2019-07-03 10:07] LABS: Urine WBC None Seen /hpf (0 - 5)
[2019-07-03 10:22] LABS: Hemoglobin 7.2 g/dL (12.2-16.2); Mean Corpuscular Hemoglobin 27.9 pg (28.0-32.0)
[2019-07-03 10:23] LABS: Mean Corpuscular Hgb Conc. 32.7 g/dL (32.0-36.0); Mean Corpuscular Volume 85.3 fL (80.0-100.0); Platelet Count (auto) 120 10^3/uL (140-450); Red Blood Cells 2.58 10^6/uL (4.0-5.20); Red Cell Distribution Width 18.7 % (11.8-14.3); White Blood Cell 14.2 10^3/uL (4.4-10.8)
[2019-07-03 10:28] LABS: Urine Bacteria FEW /hpf (None Seen); Urine Blood 1+ /uL (Negative); Urine Hyaline Cast FEW /lpf (0 - 2); Urine Mucus FEW (None Seen); Urine Specific Gravity 1.026 (1.001-1.035)
[2019-07-03 10:31] LABS: Basophils % (manual) 0 (0.0-2.0); Blast Cells 0; Promyelocytes % 0; Reactive Lymphocytes 0
--- NOTE | 2019-07-03 10:40 | NUR ---
Nutrition Consult and Follow-up Notes Wt.: 81.0 kg today. Pt's intubated, non-sedated, no immediate family member at bedside during rounds earlier. Pt's currently on NPO, on TPN @44 ml/hr providing 1150 kcal, 50 gms pro, 950 NPCs and 9% Fat. Pt with inadequate PN support d/t mod initiation rate delivery of concentrated formula aeb current PN infusion meets 66% to 76% of est caloric needs and 66% to 82% of est protein needs. Noted pt's to receive tonight another TPN @ 54 ml/hr to provide 1460 kcal, 60 gms pro, 1220 NPCs and 14% Fat. Est. Needs ABW 76 [id number] kcal (20-23 kcal/kgBW), 61-76 gms pro (0.8-1.0 gms/kgBW reassessed r/t improving ammonia, severe hypoalb). Will continue to monitor pertinent labs and reassess nutrient need prn Labs: Gluc 159 H, Cl 112 H, K 3.3 L, BUN 24 H, Cr 1.03 H, Ca 7.1 L, Phos 2.3 L, Ammonia 33 H, Tpro 5.5 L, Alb 1.8 L; Prealb 5.5 L, Trig 78 wnl Skin: Andrew scale 9, high risk, pt's right left medial sacrum non blanchable redness per news broadcaster. Pl s refer to latest centrifugal casting machine operator's notes for further details re: tx plans, GI: Pt had 1 BM this morning per news broadcaster. PES: Increased nutrient needs r/t acute/chronic medical condition aeb intubated, sedated with order of NPO Altered nutrition related lab values r/t current/chronic medical condition aeb elev ammonia, severe hypoalb, hyperglcyem,ia, hypocalcemia Obesity r/t food intake more than body requirement aeb 147% IBW, BMI 30.23 kg/m2 and increased body adiposity Will continue to monitor NPO status, PN tolerance, skin status, pertinent labs and weight trend. F/u in 2 to 3 days. Rec.: 1.) If still NPO with PN support, consider gradual increase on calories and protein to meet at least 75% of est nutrient needs. 2.) Advance gradually to oral diet or if GIT's working, consider EN support with Jevity 1.2 Abdelrahman @ 60 ml/hr goal rate as tolerated if medically appropriate. 3.) Refer pt to RD for further nutrition education and weight monitoring upon discharge. 4.) Continue current plan of care. Thank you for this consult.
--- NOTE | 2019-07-03 11:00 | NUR ---
HOSPITALIST DR. KENT AT BEDSIDE. MD AWARE PATIENT IS NOT YET AWAKE. NO ACTIVE BLEEDING. SEE NEW ORDERS.
[2019-07-03 11:10] LABS: Protein, Urine 38.7 mg/dL (0.0-11.9)
[2019-07-03] MEDS: IRON SUCROSE COMPLEX 200 MG in SODIUM CHL 0.9% 100 ML IV SCH (12:14)
[2019-07-03] MEDS: NOREPINEPHRINE 8 MG/250ML KIT 250 ML IV SCH (12:14)
[2019-07-03 12:38] LABS: Band Neutrophils % (manual) 5; Lymphocytes % (manual) 8 (10.0-50.0); Monocytes % (manual) 6 (0-12)
[2019-07-03 12:40] LABS: Eosinophils % (manual) 11 (0-7); Metamyelocytes % 1; Myelocytes % 1
--- NOTE | 2019-07-03 14:03 | NUR ---
TACHYCARDIA PATIENTS HR NOTED TO ELEVATE HIGH 117 DURING LACTULOSE ADMINISTRATION. WILL RELEASE PRESSURE ORDERED FOR PROPER ABSORPTION.
--- NOTE | 2019-07-03 14:24 | NUR ---
MOLDER SHOULDER PAD DR. MILLER AT BEDSIDE. MD NOTIFIED NO ACTIVE BLEEDING NOTED RECTALLY. NEW ORDERS IN PLACE.
--- NOTE | 2019-07-03 14:45 | NUR ---
Respiratory note: Placed pt on heated wire circuit, assisted with manual BVM by RT Sil. Went without incident.
--- NOTE | 2019-07-03 16:04 | NUR ---
ARTERIAL LINE D/C'D AFTER MULTIPLE ATTEMPTS OF REPOSITIONING ARTERIAL LINE NOTED TO LEAK. LINE REMOVED. MD AWARE. PRESSURE APPLIED TO RIGHT WRIST. WILL CONTINUE TO MONITOR SITE. NIBP NOTED TO CORRELATE CLOSELY BEFORE LINE NOTED TO CAUSE PROBLEMS.
--- NOTE | 2019-07-03 18:04 | NUR ---
BM PATIENT HAD A BOWEL MOVEMENT OF MIXED, DARK GREEN MUCOID, THREADED STOOLS WITH YELLOW LIQUID. UNABLE TO OBTAIN ACCURATE OUTPUT CONTENTS WERE IN FLEXISEAL COLLECTION BAG AND ON PADS.
--- NOTE | 2019-07-03 18:29 | NUR ---
Respiratory note: RECEIVED PT ON VENT V20, VENT CONNECTED TO RED OUTLET AND O2 SOURCE. ALARMS ARE SET AND AUDIBLE. AMBU BAG AND MASK AT BEDSIDE. BS ARE FINE COURSE, SXD FOR SCANT THICK CLEAR. MED NEB TX GIVEN INLINE WITHOUT ADVERSE REACTION NOTED WILL CONTINUE TO MONITOR Q2H. PTS FAMILY AT BEDSIDE.
--- NOTE | 2019-07-03 18:42 | NUR ---
Family updated on pt status Family of BACASAM updated on patient's status and condition. All questions and concerns addressed. Mother, verbalized understanding.
--- NOTE | 2019-07-03 18:43 | NUR ---
Family awaiting EEG, Ct of head results. Md to be notified family would like to be contacted. On coming nurse to be notified.
[2019-07-03] MEDS: DexMEDEtomidine 400 MCG in D5W 5% 96 ML IV SCH (18:58)
[2019-07-03] MEDS ORDERED: DEXTROSE (50%) 50ML SYRG IV PRN (19:00)
--- NOTE | 2019-07-03 19:00 | NUR ---
OPENING Assumed care of female patient orally intubated no sedation. on levo of 16mcg/min, does not open eyes when stimulated. Hypoactive cough and gag noted. active bowel sounds. Pupils both sluggishly reactive to light. respirations even and unlabored. minimum amount of oral secretions suctioned. pt is on icu monitors. temp 100.0, cooling measures are in place. Donnelly catheter hanging below bladder, patent and draining light marcelo urine with to gravity. r upper arm iv midline,iv flushed w/ns, iv is patent and dressing is intact, iv site appears asymptomatic at this time. optifoam dressing applied to sacrum for safety measures, flexiseal in place, zgaurd to marifer area. Both legs with SCDs. all bony prominences off loaded with pillows for comfort and safety. full assessment in interventions. bed in lowest position, wheels locked, hob45*, pt is in full view of rn station, safety measures are in place. vs are stable at this time. will continue to care for and monitor.
--- NOTE | 2019-07-03 19:18 | NUR ---
REPORT GIVEN TO [facility] NURSE PRITCHARD, UPDATED ON PLAN OF CARE. PT VSS. SEE SPREADSHEET. BED IN LOWEST POSITION. RAILS UP FOR SAFETY.
[2019-07-03] MEDS ORDERED: TPN PER PHARMACY IV NR ×9 (20:00)
--- NOTE | 2019-07-03 20:16 | NUR ---
Respiratory note: AT BEDSIDE FOR ROUTINE VENT. NO CHANGES MADE AT THIS TIME. PTS CURRENT TEMP IS 99.7F. WILL CONTINUE TO MONITOR Q2H VENT CHECK AND NEEDED.
--- NOTE | 2019-07-03 22:41 | NUR ---
Respiratory note: AT BEDSIDE FOR ROUTINE VENT CHECK. NO CHANGES MADE AT THIS TIME. PTS CURRENT TEMP IS 99.7F. BS ARE FINE RHONCHI, SXD FOR SCANT DANG. WILL CONTINUE TO MONITOR Q2H VENT CHECK AND NEEDED.
--- NOTE | 2019-07-03 23:40 | NUR ---
temp is decreasing pt temp is now 98.9, cooling measures still in place will continue to care for and monitor.
[2019-07-04] VITALS (88 sets, daily range): BP systolic 76–129; BP diastolic 31–75
[2019-07-04] MEDS: ALBUTEROL SULF 2.5 MG/0.5ML(0.5%) NEB SOLN NEB SCH ×4 (00:28→18:18)
--- NOTE | 2019-07-04 00:28 | NUR ---
Respiratory note: AT BEDSIDE FOR ROUTINE VENT. NO CHANGES MADE AT THIS TIME. PTS CURRENT TEMP IS 100.4F. BS ARE COURSE SXD SCANT DANG.YELLOW. MED NEB TX GIVEN INLINE WITHOUT ADVERSE REACTION NOTED.WILL CONTINUE TO MONITOR Q2H VENT CHECK AND NEEDED.
--- NOTE | 2019-07-04 01:12 | NUR ---
no ss of distress pt remains orally intubated. no ss of distress noted at this time, will continue to care for and monitor.
--- NOTE | 2019-07-04 02:37 | NUR ---
Respiratory note: AT BEDSIDE FOR ROUTINE VENT CHECK. NO VENT CHANGES MADE AT THIS TIME, TUBING DRAINED AT THIS TIME. WILL CONTINUE TO MONITOR Q2H VENT CHECK AND NEEDED.
--- NOTE | 2019-07-04 03:48 | NUR ---
hygiene bed bath provided, full linen change preformed. pt tolerated care.
[2019-07-04 03:59] LABS: Hemoglobin 7.5 g/dL (12.2-16.2); Mean Corpuscular Hemoglobin 28.3 pg (28.0-32.0)
[2019-07-04 04:02] LABS: Hematocrit 22.9 % (36.0-46.0); Mean Corpuscular Hgb Conc. 32.9 g/dL (32.0-36.0); Mean Corpuscular Volume 86.1 fL (80.0-100.0); Platelet Count (auto) 119 10^3/uL (140-450); Red Blood Cells 2.66 10^6/uL (4.0-5.20); Red Cell Distribution Width 19.6 % (11.8-14.3); White Blood Cell 13.6 10^3/uL (4.4-10.8)
[2019-07-04 04:23] LABS: Albumin 1.9 g/dL (3.4-5.0); Calcium 7.2 mg/dL (8.5-10.1); Potassium 3.5 mmol/L (3.5-5.1)
--- NOTE | 2019-07-04 04:23 | NUR ---
Respiratory note: AT BEDSIDE FOR END OF SHIFT VENT CHECK. CURRENT TEMP IS 100.0F. NO VENT CHANGES MADE AT THIS TIME. WILL HAVE DAY SHIFT CONTINUE POC.
[2019-07-04 04:28] LABS: BUN/Creatinine Ratio 24.4; Bilirubin, Total 0.8 mg/dL (0.2-1.0); Phosphorus 2.7 mg/dL (2.5-4.90); Total Protein 5.8 g/dL (6.4-8.2)
[2019-07-04 04:31] LABS: Basophils % (manual) 0 (0.0-2.0); Blast Cells 0; Promyelocytes % 0; Reactive Lymphocytes 0
[2019-07-04 04:55] LABS: Band Neutrophils % (manual) 2; Eosinophils % (manual) 4 (0-7); Lymphocytes % (manual) 13 (10.0-50.0); Metamyelocytes % 1; Monocytes % (manual) 10 (0-12); Myelocytes % 1
--- NOTE | 2019-07-04 05:10 | NUR ---
tubing and canisters changed suction tubing and canisters changed. vs are stable at this time.
[2019-07-04] MEDS: NOREPINEPHRINE 8 MG/250ML KIT 250 ML IV SCH ×2 (05:27→07:40)
[2019-07-04] MEDS: ceFAZolin 2 GM in D5W 5% 100 ML IV SCH ×3 (05:45→22:48)
[2019-07-04] MEDS: ACCU-CHEK COMFORT CURVE STRIP VI SCH ×4 (05:52→18:07)
[2019-07-04] MEDS: LACTULOSE 20Gm/30ML SOLN PR SCH ×4 (05:52→18:08)
[2019-07-04] MEDS: InsuLIN REG 1unit/0.01ml Soln (100units/ml) SC SCH ×4 (05:54→18:13)
--- NOTE | 2019-07-04 06:30 | NUR ---
bs/ insulin given after checking the bs it was determined that insulin was needed. insulin was given using the prescribed bs insulin protocol.
--- NOTE | 2019-07-04 07:15 | NUR ---
Opening note; Received report, assumed care of female patient on vent/ levophed, Right IJ central venous triple lumen catheter in place and midline to Right upper arm. Lines flushed and patent, MAP of 60, levophed titrated up, see IV spread sheet for rates and IVF/TPN. Neuro status: patient unresponsive, no following simple commands, Pupils 3mm, brisk, bilat. Flexiseal in place, no dark bloody stools noted. No family at bedside. Patient repositioned in bed and pillows applied to back side, no signs of acute distress noted. Continue to monitor.
[2019-07-04] MEDS: PHENYLEPHRINE INJ 20 MG in SODIUM CHL 0.9% 250 ML IV SCH ×2 (07:43→16:31)
--- NOTE | 2019-07-04 07:49 | NUR ---
Dr. Lott at bedside to evaluate patient, updated on patient status including neuro status.
--- NOTE | 2019-07-04 09:26 | NUR ---
Dr. Alex at bedside, updated on patient status, no new orders at this time.
[2019-07-04] MEDS ORDERED: POTASSIUM PHOSP 22MEQ(15MMOLE) in NS 100 ML IV ONE (10:00)
[2019-07-04] MEDS: PANTOPRAZOLE 40 MG/10 ML VIAL INJ IV SCH ×2 (10:08→22:48)
[2019-07-04] MEDS: MIDAZOLAM DRIP 50 mg/50mL 50 ML IV SCH (10:49)
[2019-07-04] MEDS: PROPOFOL 100 ML IV SCH (11:37)
[2019-07-04 11:48] LABS: Hepatitis A Ab IgM Negative; Hepatitis B Core IgM Negative; Hepatitis B Surface Antigen Negative (Negative); Hepatitis C Antibody Negative (Negative)
[2019-07-04] MEDS: IRON SUCROSE COMPLEX 200 MG in SODIUM CHL 0.9% 100 ML IV SCH (12:18)
--- NOTE | 2019-07-04 13:50 | NUR ---
Family at bedside, updated on patient condition, no questions or concerns at this time.
[2019-07-04] MEDS: DexMEDEtomidine 400 MCG in D5W 5% 96 ML IV SCH (18:13)
--- NOTE | 2019-07-04 18:25 | NUR ---
Dr. Awan at bedside, updated on status, made aware of increasing titration of Levophed, states he will evaluate patient for possible A-line.
--- NOTE | 2019-07-04 18:26 | NUR ---
Patient resting comfortably at this time, no signs of acute distress noted, continue to monitor.
--- NOTE | 2019-07-04 19:17 | NUR ---
OPENING Assumed care of female patient orally intubated no sedation. on levo of 16mcg/min, does not open eyes when stimulated. Hypoactive cough and gag noted. active bowel sounds. Pupils both sluggishly reactive to light. respirations even and unlabored. minimum amount of oral secretions suctioned. pt is on icu monitors. temp 99.8, cooling measures are in place. Donnelly catheter hanging below bladder, patent and draining light marcelo urine with to gravity. r upper arm iv midline,iv flushed w/ns, iv is patent and dressing is intact, iv site appears asymptomatic at this time. optifoam dressing applied to sacrum for safety measures, flexiseal in place, zgaurd to marifer area. Both legs with SCDs. all bony prominences off loaded with pillows for comfort and safety. full assessment in interventions. bed in lowest position, wheels locked, hob45*, pt is in full view of rn station, safety measures are in place. vs are stable at this time. will continue to care for and monitor.
[2019-07-04] MEDS ORDERED: TPN PER PHARMACY IV NR ×10 (20:00)
--- NOTE | 2019-07-04 22:14 | NUR ---
temp 100.4 pt temp is elevated, cooling measures are in place.
--- NOTE | 2019-07-04 23:20 | NUR ---
no ss of distress pt still intubated, no ss of distress noted at this time. will continue to care for and monitor.
[2019-07-05] VITALS (97 sets, daily range): BP systolic 67–149; BP diastolic 30–70
--- NOTE | 2019-07-05 00:12 | NUR ---
bs/ insulin given after checking the bs it was determined that insulin was needed. insulin was given using the prescribed bs insulin protocol.
[2019-07-05] MEDS: ALBUTEROL SULF 2.5 MG/0.5ML(0.5%) NEB SOLN NEB SCH ×3 (00:24→18:52)
[2019-07-05] MEDS: PHENYLEPHRINE INJ 20 MG in SODIUM CHL 0.9% 250 ML IV SCH ×3 (00:51→14:30)
--- NOTE | 2019-07-05 03:25 | NUR ---
hygiene bed bath provided, full linen change preformed. pt tolerated care.
[2019-07-05 03:57] LABS: Albumin 1.8 g/dL (3.4-5.0); Calcium 7.1 mg/dL (8.5-10.1)
[2019-07-05 04:01] LABS: BUN/Creatinine Ratio 22.7; Bilirubin, Total 0.8 mg/dL (0.2-1.0); Phosphorus 2.8 mg/dL (2.5-4.90); Total Protein 5.7 g/dL (6.4-8.2)
--- NOTE | 2019-07-05 05:36 | NUR ---
pt temp has decreased to 99.0
[2019-07-05] MEDS: ACCU-CHEK COMFORT CURVE STRIP VI SCH ×4 (06:01→18:25)
[2019-07-05] MEDS: ACETAMINOPHEN 650 MG RECT SUPP PR PRN (06:01)
[2019-07-05] MEDS: LACTULOSE 20Gm/30ML SOLN PR SCH ×4 (06:01→18:24)
[2019-07-05] MEDS: ceFAZolin 2 GM in D5W 5% 100 ML IV SCH ×3 (06:02→22:00)
[2019-07-05] MEDS: InsuLIN REG 1unit/0.01ml Soln (100units/ml) SC SCH ×4 (06:09→18:25)
--- NOTE | 2019-07-05 09:10 | NUR ---
CALLED DR. FLYNN: ORDERS GIVEN PATIENT HAVING INCREASED RESP. RATE TO LOW 30'S. INCREASED WORK OF BREATHING AFTER TURNING PATIENT. INFORMED DR. FLYNN ON PT'S CURRENT STATUS. PATIENT STILL NOT FOLLOWING COMMANDS OR ANY PURPOSEFUL MOVEMENTS. MAY RESTART DIPRIVAN GTT TO KEEP PATIENT COMFORTABLE. FAMILY INFORMED. CONTINUE CARE.
--- NOTE | 2019-07-05 09:30 | NUR ---
DR. ZELAYA AT BEDSIDE: ORDERS MD UPDATED ON PT'S STATUS, LABS AND POC FOR TODAY. ORDERS GIVEN AND TO BE CARRIED OUT. CONTINUE CARE. MD TALKING WITH PATIENT'S DAUGHTER AT BEDSIDE.
[2019-07-05 09:42] LABS: Hemoglobin 7.5 g/dL (12.2-16.2); Platelet Count (auto) 115 10^3/uL (140-450)
[2019-07-05 09:44] LABS: Hematocrit 23.7 % (36.0-46.0); Mean Corpuscular Hemoglobin 28.3 pg (28.0-32.0); Mean Corpuscular Hgb Conc. 31.7 g/dL (32.0-36.0); Mean Corpuscular Volume 89.3 fL (80.0-100.0); Red Blood Cells 2.66 10^6/uL (4.0-5.20); White Blood Cell 12.7 10^3/uL (4.4-10.8)
[2019-07-05] MEDS: MIDAZOLAM DRIP 50 mg/50mL 50 ML IV SCH (09:59)
[2019-07-05] MEDS: NOREPINEPHRINE 8 MG/250ML KIT 250 ML IV SCH ×2 (09:59→21:22)
[2019-07-05] MEDS: PANTOPRAZOLE 40 MG/10 ML VIAL INJ IV SCH ×2 (10:00→22:00)
--- NOTE | 2019-07-05 11:10 | NUR ---
Nutrition Follow-up Notes Wt.: 82.0 kg today. Pt's intubated, non-sedated, no immediate family member at bedside when rounded earlier. Pt's currently on NPO, on TPN @64 ml/hr providing 1770 kcal, 70 gms pro, 1490 NPCs and 17% Fat. Pt with adequate PN support d/t high initiation rate delivery of concentrated formula aeb current PN infusion meets 101% to 116% of est caloric needs and 92% to 115% of est protein needs. Noted pt's to receive tonight another TPN @ same rate and nutrient concentration. Est. Needs ABW 76 [id number] kcal (20-23 kcal/kgBW), 61-76 gms pro (0.8-1.0 gms/kgBW reassessed r/t improving ammonia, severe hypoalb). Will continue to monitor pertinent labs and reassess nutrient need prn Labs: Gluc 172 H, Cl 109 H, Ca 7.1 L, AST 40 L, ALT 12 L, Tpro 5.7 L, Alb 1.8 L; Prealb 5.2 L, Trig 78 wnl; Ammonia 39 H, Skin: Andrew scale 10, high risk, pt's right left medial sacrum non blanchable redness per fourdrinier tender. Pl s refer to latest cosmetics machine operator's notes for further details re: tx plans, GI: Pt had 1 BM this morning per fourdrinier tender. PES: Increased nutrient needs r/t acute/chronic medical condition aeb intubated, sedated with order of NPO Altered nutrition related lab values r/t current/chronic medical condition aeb elev ammonia, severe hypoalb, hyperglycem,ia, hypocalcemia Obesity r/t food intake more than body requirement aeb 147% IBW, BMI 30.23 kg/m2 and increased body adiposity Will continue to monitor NPO status, PN tolerance, skin status, pertinent labs and weight trend. F/u in 2 to 3 days. Rec.: 1.) If still NPO, continue PN support that meets at least 75% of est nutrient needs. 2.) Advance gradually to oral diet or if GIT's working, consider EN support with Jevity 1.2 Abdelrahman @ 60 ml/hr goal rate as tolerated if medically appropriate. 3.) Refer pt to RD for further nutrition education and weight monitoring upon discharge. 4.) Continue current plan of care.
[2019-07-05] MEDS: PROPOFOL 100 ML IV SCH (11:28)
[2019-07-05 11:33] LABS: Basophils % (manual) 0 (0.0-2.0); Blast Cells 0; Metamyelocytes % 0; Myelocytes % 0; Promyelocytes % 0; Reactive Lymphocytes 0
[2019-07-05 11:43] LABS: Band Neutrophils % (manual) 2; Eosinophils % (manual) 8 (0-7); Lymphocytes % (manual) 15 (10.0-50.0); Monocytes % (manual) 12 (0-12)
[2019-07-05] MEDS: SODIUM FERR GLUC 62.5MG/5ML 125 MG in SODIUM CHL 0.9% 100 ML IV SCH (12:30)
--- NOTE | 2019-07-05 13:00 | NUR ---
DR. FLYNN CALLED: UPDATE WITH ORDERS GIVEN MD INFORMED ON PT'S RR IN THE HIGH 20'S. 27-29. ORDERS GIVEN FOR X1 DOSE OF FENTANYL IVP 25 MCG. SEE EMAR FOR TIME GIVEN. RESP. RATE WENT DOWN TO 21-24 BPM AFTER GIVING MEDICATION. CONTINUE CARE.
[2019-07-05] MEDS ORDERED: fentaNYL CITRATE 100 MCG/2 ML VL IV ONE (13:15)
[2019-07-05] MEDS ORDERED: fentaNYL CITRATE 100 MCG/2 ML VL IM ONE (13:45)
[2019-07-05] MEDS: DexMEDEtomidine 400 MCG in D5W 5% 96 ML IV SCH (17:22)
--- NOTE | 2019-07-05 17:45 | NUR ---
DR. LEYVA AT BEDSIDE: A-LINE PLACEMENT CONSENTS SIGNED. RIGHT RADIAL A-LINE PLACED AT THIS TIME USING STERILE PROCEDURE. SEE IV FLOW SHEET FOR TITRATION OF LEVOPHED GTT. CONTINUE CARE. DRESSING APPLIED.
--- NOTE | 2019-07-05 19:15 | NUR ---
OPENING Assumed care of female patient orally intubated, 50mcg/kg/min, on levo of 25mcg/min, does not open eyes when stimulated,pt has delayed grimace and Hypoactive cough and gag noted. active bowel sounds. Pupils both sluggishly reactive to light. respirations even and unlabored. minimum amount of oral secretions suctioned. pt is on icu monitors. temp 97.9, cooling measures are in place. Donnelly catheter hanging below bladder, patent and draining light marcelo urine with to gravity. r upper arm iv midline,l subclavin triple lumen, r wrist a-line, iv flushed w/ns, iv is patent and dressing is intact, iv site appears asymptomatic at this time. optifoam dressing applied to sacrum for safety measures, flexiseal in place, zgaurd to marifer area. Both legs with SCDs. all bony prominences off loaded with pillows for comfort and safety. full assessment in interventions. bed in lowest position, wheels locked, hob45*, pt is in full view of rn station, safety measures are in place. vs are stable at this time. will continue to care for and monitor.
[2019-07-05] MEDS ORDERED: TPN PER PHARMACY IV NR ×10 (20:00)
--- NOTE | 2019-07-05 23:00 | NUR ---
no ss of distress pt still intubated, no ss of distress noted at this time. will continue to care for and monitor.
[2019-07-06] VITALS (107 sets, daily range): BP systolic 66–158; BP diastolic 25–70
[2019-07-06] MEDS: ACCU-CHEK COMFORT CURVE STRIP VI SCH ×5 (00:05→23:42)
[2019-07-06] MEDS: LACTULOSE 20Gm/30ML SOLN PR SCH ×4 (00:08→17:46)
[2019-07-06] MEDS: ALBUTEROL SULF 2.5 MG/0.5ML(0.5%) NEB SOLN NEB SCH ×4 (00:27→18:49)
[2019-07-06] MEDS: PROPOFOL 100 ML IV SCH ×4 (00:30→20:07)
--- NOTE | 2019-07-06 00:30 | NUR ---
bs/ insulin held after checking the bs it was determined that insulin was not needed. according to the prescribed bs insulin protocol.
[2019-07-06] MEDS: PHENYLEPHRINE INJ 20 MG in SODIUM CHL 0.9% 250 ML IV SCH ×3 (01:51→18:31)
[2019-07-06 04:21] LABS: Calcium 7.4 mg/dL (8.5-10.1); Potassium 3.8 mmol/L (3.5-5.1)
[2019-07-06 04:30] LABS: Albumin 1.8 g/dL (3.4-5.0); Bilirubin, Total 0.6 mg/dL (0.2-1.0); Magnesium 2.2 mg/dL (1.6-2.6); Phosphorus 3.2 mg/dL (2.5-4.90); Total Protein 5.7 g/dL (6.4-8.2)
[2019-07-06] MEDS: ceFAZolin 2 GM in D5W 5% 100 ML IV SCH ×3 (06:00→21:39)
[2019-07-06] MEDS: InsuLIN REG 1unit/0.01ml Soln (100units/ml) SC SCH ×5 (06:00→23:42)
--- NOTE | 2019-07-06 06:20 | NUR ---
Respiratory note: RECEIVED PATIENT ON V20 V200 VENT ORALLY INTUBATED WITH A 7.5 ETT SECURED VIA RAQUEL AT THE 22CM MARKING AT THE LIP, AND MECHANICALLY VENTILATED WITH THE CHARTED SETTINGS. SPO2 98%, LUNG SOUNDS CLEAR/DIM T/O, NO SECRETIONS WHEN SUCTIONED. SKIN IS WARM/DRY TO THE TOUCH AND IS INTACT NEAR RAQUEL SITE. THERE IS NO OG OR NG IN PLACE. THERE IS A LEFT SUBCLAVIAN TRIPLE LUMEN CENTRAL LINE PLACED, AND AN ARTERIAL LINE IS PLACED IN THE RIGHT RADIAL ARTERY. A MIDLINE CATHETER IS PLACED IN THE RIGHT UPPER ARM. NON PITTING EDEMA NOTED IN BILATERAL UPPER EXTREMITIES AND LOWER EXTREMITIES SHOW +1 PITTING EDEMA AND HAVE LEG SEQUENTIALS ON AND OPERATIONAL. NO NEW CXR TO ASSESS. PATIENT IS UNRESPONSIVE TO BOTH VERBAL/TACTILE STIMULI AND IS SEDATED ON A PROPOFOL DRIP. SHE IS RESTING COMFORTABLY AND TOLERATING VENT WELL, NO CHANGES MADE. VENT PLUGGED INTO RED OUTLET AND ALL ALARMS ARE SET AND AUDIBLE. WILL CONTINUE TO ASSESS PATIENT WELL VENTILATOR FUNCTION. [employer] RUN INLINE.
--- NOTE | 2019-07-06 07:00 | NUR ---
Report received from RON Contreras.
--- NOTE | 2019-07-06 08:00 | NUR ---
A-Line zeroed : good waveform going by A-line pressure.
[2019-07-06] MEDS: MIDAZOLAM DRIP 50 mg/50mL 50 ML IV SCH (10:49)
[2019-07-06 10:55] LABS: Basophils # (auto) 0.1 uL; Basophils % (auto) 0.7 % (0.0-2.0); Eosinophils # (auto) 0.6 uL; Eosinophils % (auto) 5.2 % (0.0-7.0); Hematocrit 24.1 % (36.0-46.0); Hemoglobin 7.8 g/dL (12.2-16.2); Lymphocytes # (auto) 1.7 uL; Lymphocytes % (auto) 14.6 % (10.0-50.0); Mean Corpuscular Hgb Conc. 32.4 g/dL (32.0-36.0); Mean Corpuscular Volume 89.2 fL (80.0-100.0); Monocytes # (auto) 1.1 uL; Monocytes % (auto) 9.9 % (0.0-12.0); Neutrophils # (auto) 7.9 uL; Neutrophils % (auto) 69.6 % (37.0-80.0); Nucleated Red Blood Cells % 0.2 %; Platelet Count (auto) 120 10^3/uL (140-450); White Blood Cell 11.3 10^3/uL (4.4-10.8)
[2019-07-06 10:57] LABS: Red Cell Distribution Width 23.7 % (11.8-14.3)
--- NOTE | 2019-07-06 11:00 | NUR ---
Dr. Lehman at bedside: Continue with protonix regimen, continue to monitor for bleeding and monitor H&H.
[2019-07-06 11:01] LABS: Albumin 1.8 g/dL (3.4-5.0); Calcium 7.4 mg/dL (8.5-10.1); Potassium 4.3 mmol/L (3.5-5.1)
[2019-07-06 11:06] LABS: BUN/Creatinine Ratio 26.6; Bilirubin, Total 0.6 mg/dL (0.2-1.0); Total Protein 5.7 g/dL (6.4-8.2)
[2019-07-06] MEDS: PANTOPRAZOLE 40 MG/10 ML VIAL INJ IV SCH ×2 (11:11→21:39)
--- NOTE | 2019-07-06 11:33 | NUR ---
Dr. Krishnan at bedside- Put in communication to transfuse if HGB <7.
--- NOTE | 2019-07-06 12:12 | NUR ---
WOUND CARE NOTE: Wound care in to see patient for skin integrity monitoring. Patient continue resting on air bed in ICU Rm. 104. Patient is still intubated, sedated and mechanically ventilated. Patient appears to be in no pain using Sargent Frost Faces Pain Scale. Her current Andrew score is 10. Skin assessment done with the assistance of patient's nurse, RON Church. No open wound noted. Patient's medial sacrum at intragluteal fold display mild intertrigo but skin remain intact, pink and blanchable. Patient has rectal tube in placed with liquid stool in tubing an din bag.Minimal stools leak noted at perirectal area. Thelma care given and applied Cavilon skin protectant to perirectal area. Patient continue receiving antifungal clear ointment to intragluteal fold intertrigo. Sacral photograph taken for reference. Patient tolerated well. Repositioned for comfort. RECOMMEND: BID/PRN cleaning and application of Cavilon skin protectant to perirectal, lower buttocks area per MD order, continuation of all other wound care orders, prescribed by MD, continue with skin/wound preventative plan of care, continue monitoring by wound care while patient is hospitalized. Addendum: 07/06/19 at 1806 by Lawanda Sparrow RN Amended: Links added.
--- NOTE | 2019-07-06 12:22 | NUR ---
Agustina from wound care at bedside- order for cavilon to patients skin, no need for optifoam dressing since patient has no bony prominence to sacral area.
[2019-07-06] MEDS: SODIUM FERR GLUC 62.5MG/5ML 125 MG in SODIUM CHL 0.9% 100 ML IV SCH (12:49)
--- NOTE | 2019-07-06 14:00 | NUR ---
Sent ABG results to Dr. Lv rios MD increase FI02 to 35%.
--- NOTE | 2019-07-06 15:00 | NUR ---
Dr. Lott at bedside: Patient more responsive- continue to titrate sedation.
[2019-07-06] MEDS: NOREPINEPHRINE 8 MG/250ML KIT 250 ML IV SCH (16:16)
--- NOTE | 2019-07-06 16:31 | NUR ---
Family at bedside: went over plan of care with family. Possibly CPAP tomorrow if stable and possibly another abdominal Us to check to ascites.
--- NOTE | 2019-07-06 17:56 | NUR ---
Dr. Awan at bedside: CPAP tomorrow if stable. Ask primary in the AM if they want another Abdominal ultrasound to check for ascites-looks edematous.
[2019-07-06] MEDS: DexMEDEtomidine 400 MCG in D5W 5% 96 ML IV SCH (18:53)
--- NOTE | 2019-07-06 18:57 | NUR ---
Report given and endorsed care to RON Pedraza.
--- NOTE | 2019-07-06 19:15 | NUR ---
OPENING ASSUMED CARE OR PT INTUBATED AND SEDATED. PUPILS REACTIVE TO LIGHT AND SLUGGISH. WITHDRAWALS TO TACTILE STIMULATION, OTHERWISE NONRESPONSIVE. PROPOFOL RUNNING, SEE IV SPREADSHEET. RESPIRATIONS EVEN AND UNLABORED, TOLERATING VENTILATOR. ST ON TRAFFIC SERGEANT. LEVOPHED RUNNING, SEE IV SPREADSHEET. ABD LARGE, ROUND, FIRM. FLEXISEAL IN PLACE, PATENT AND DRAINING. DOW CATHETER PATENT AND DRAINING URINE TO GRAVITY. SKIN INTACT. ALL BONY PROMINENCES OFFLOADED WITH PILLOWS. NO PAIN OBSERVED. BED IN LOWEST LOCKED POSITION, IN FULL VIEW OF NURSES STATION. WILL CONTINUE TO MONITOR.
--- NOTE | 2019-07-06 19:36 | NUR ---
FAMILY CALL FROM DAUGHTER, PASSWORD GIVEN. UPDATED ON PATIENTS STATUS, ALL QUESTIONS AND CONCERNS ADDRESSED AT THIS TIME, VERBALIZED UNDERSTANDING.
[2019-07-06] MEDS ORDERED: TPN PER PHARMACY IV NR ×10 (20:00)
[2019-07-07] VITALS (107 sets, daily range): BP systolic 78–184; BP diastolic 35–73
[2019-07-07] MEDS: ALBUTEROL SULF 2.5 MG/0.5ML(0.5%) NEB SOLN NEB SCH ×4 (00:14→18:22)
[2019-07-07] MEDS: NOREPINEPHRINE 8 MG/250ML KIT 250 ML IV SCH (00:51)
[2019-07-07] MEDS: PROPOFOL 100 ML IV SCH ×3 (00:52→21:34)
[2019-07-07] MEDS: PHENYLEPHRINE INJ 20 MG in SODIUM CHL 0.9% 250 ML IV SCH ×3 (02:51→19:18)
--- NOTE | 2019-07-07 04:13 | NUR ---
FULL BED BATH AND LINEN CHANGE DONE AT THIS TIME. SKIN ASSESSED FOR ANY NEW BREAKDOWN, NONE NOTED. FLEXI SEAL IN PLACE WITH NO LEAKAGE. SKIN INTACT. ALL BONY PROMINENCES OFF LOADED WITH PILLOWS. TOLERATED WELL. VSS. WILL CONTINUE TO MONITOR.
[2019-07-07 04:23] LABS: Basophils # (auto) 0.1 uL; Basophils % (auto) 0.6 % (0.0-2.0); Hemoglobin 7.6 g/dL (12.2-16.2); Monocytes # (auto) 1.3 uL; Neutrophils # (auto) 9.1 uL; Nucleated Red Blood Cells % 0.1 %
[2019-07-07 04:25] LABS: Eosinophils # (auto) 0.5 uL; Eosinophils % (auto) 4.1 % (0.0-7.0); Hematocrit 22.9 % (36.0-46.0); Lymphocytes % (auto) 15.3 % (10.0-50.0); Mean Corpuscular Hgb Conc. 33.4 g/dL (32.0-36.0); Monocytes % (auto) 10.2 % (0.0-12.0); Neutrophils % (auto) 69.8 % (37.0-80.0); Platelet Count (auto) 112 10^3/uL (140-450); Red Blood Cells 2.54 10^6/uL (4.0-5.20)
[2019-07-07 04:38] LABS: Red Cell Distribution Width 25.6 % (11.8-14.3)
[2019-07-07 04:39] LABS: Potassium 4.1 mmol/L (3.5-5.1)
[2019-07-07 04:41] LABS: INR 1.15 (0.9-1.15); Partial Thromboplastin Time 50.4 sec (23.64-32.05)
[2019-07-07 04:48] LABS: Albumin 1.7 g/dL (3.4-5.0); BUN/Creatinine Ratio 31.4; Bilirubin, Total 0.6 mg/dL (0.2-1.0); Calcium 7.4 mg/dL (8.5-10.1); Magnesium 2.2 mg/dL (1.6-2.6); Phosphorus 3.1 mg/dL (2.5-4.90); Pre Albumin 7.7 mg/dL (20.0-40.0); Total Protein 5.6 g/dL (6.4-8.2)
[2019-07-07] MEDS: ceFAZolin 2 GM in D5W 5% 100 ML IV SCH ×3 (05:11→21:58)
[2019-07-07] MEDS: LACTULOSE 20Gm/30ML SOLN PR SCH ×4 (05:14→17:36)
[2019-07-07] MEDS: ACCU-CHEK COMFORT CURVE STRIP VI SCH ×4 (05:49→23:54)
[2019-07-07] MEDS: InsuLIN REG 1unit/0.01ml Soln (100units/ml) SC SCH ×4 (05:49→23:54)
[2019-07-07] MEDS: DexMEDEtomidine 400 MCG in D5W 5% 96 ML IV SCH (08:14)
--- NOTE | 2019-07-07 08:21 | NUR ---
NEURO STATUS PATIENT OPENS EYES TO VOICE, FOLLOWING SIMPLE COMMAND AND ANSWERING APPROPRATELY TO SIMPLE QUESTIONS. PT NOTED TO HAVE RR 30-35 WITH ACCESSORY MUSCLE USE. PT CURRENTLY OFF ALL SEDATION. PRECEDEX GTT STARTED. SEE IV SPREADSHEET.
--- NOTE | 2019-07-07 10:03 | NUR ---
DR. FLYNN AT BEDSIDE MD UPDATED ON PATIENTS STATUS AND TACHYPNEA NOTED THIS A.M. STATED CPAP WHEN PATIENT APPROPRIATE AND AWAKE.
--- NOTE | 2019-07-07 10:14 | NUR ---
Family updated on pt status Family of SAM BACA updated on patient's status and condition. All questions and concerns addressed. Yelena verbalized understanding.
[2019-07-07] MEDS: MIDAZOLAM DRIP 50 mg/50mL 50 ML IV SCH (10:49)
--- NOTE | 2019-07-07 11:17 | NUR ---
NEURO PATIENT REMAINS ON PRECEDEX. CURRENTLY OPENING EYES TO VOICE, ANSWERING SIMPLE QUESTIONS WITH RR 18-22. POX 95% ON 30% FI02. PRECEDEX DECREASED TO HAVE PATIENT MORE ALERT. ABD. U/S PENDING.
--- NOTE | 2019-07-07 12:14 | NUR ---
Nutrition Follow-up Notes Wt.: 82.2 kg Pt's intubated, non-sedated, no immediate family member at bedside when rounded earlier. Pt's currently on NPO, on TPN @63 ml/hr providing 1575 kcal, 75 gms pro, 1275 NPCs. Pt with adequate PN support d/t high initiation rate delivery of concentrated formula aeb current PN infusion meets 90-103% of est caloric needs and 99-122% of est protein needs. Est. Needs ABW 76 [id number] kcal (20-23 kcal/kgBW), 61-76 gms pro (0.8-1.0 gms/kgBW reassessed r/t improving ammonia, severe hypoalb). Will continue to monitor pertinent labs and reassess nutrient need prn Labs: GLU 125 H, BUN 22 H, CA 7.4 L, ALB 1.7 L, PREALB 7.7 L. Skin: Andrew scale 10, high risk, pt's right left medial sacrum non blanchable redness per central service tech. Pl s refer to latest supervisor carton and can supply's notes for further details re: tx plans, GI: Pt had 1 BM yesterday with 300 ml gastric drainage today per central service tech. PES: Increased nutrient needs r/t acute/chronic medical condition aeb intubated, sedated with order of NPO Altered nutrition related lab values r/t current/chronic medical condition aeb elev ammonia, severe hypoalb, hyperglycem,ia, hypocalcemia Obesity r/t food intake more than body requirement aeb 147% IBW, BMI 30.23 kg/m2 and increased body adiposity Will continue to monitor NPO status, PN tolerance, skin status, pertinent labs and weight trend. F/u in 2 to 3 days. Rec.: 1.) If still NPO, continue PN support that meets at least 75% of est nutrient needs. 2.) Advance gradually to oral diet or if GIT's working, consider EN support with Jevity 1.2 Abdelrahman @ 60 ml/hr goal rate as tolerated if medically appropriate. 3.) Refer pt to RD for further nutrition education and weight monitoring upon discharge. 4.) Continue current plan of care.
--- NOTE | 2019-07-07 13:50 | NUR ---
PT PLACED ON CPAP AT THIS TIME, PS 8, PEEP 8, 30% FIO2. PT FOLLOWS COMMANDS.
--- NOTE | 2019-07-07 14:13 | NUR ---
PATIENT ON CPAP TRIAL AT THIS TIME. TOLERATING WELL. RR 18 POX 96% PT REMAINS ON PRECEDEX AT THIS TIME, CALM AND RELAXED, ANSWERS SIMPLE QUESTIONS AND FOLLOWS SIMPLE COMMANDS, WILL CONTINUE TO MONITOR.
[2019-07-07] MEDS: PANTOPRAZOLE 40 MG/10 ML VIAL INJ IV SCH ×2 (14:17→21:58)
[2019-07-07] MEDS: SODIUM FERR GLUC 62.5MG/5ML 125 MG in SODIUM CHL 0.9% 100 ML IV SCH (14:18)
--- NOTE | 2019-07-07 15:28 | NUR ---
CPAP PARAMETERS: NIF -38 VC 800ml RSBI 32 LEAK TEST 324
--- NOTE | 2019-07-07 15:53 | NUR ---
EXTUBATED PATIENT EXTUBATED BY R.T AT BEDSIDE. PATIENT OPENING EYES SPONTANEOUSLY, FOLLOWING SIMPLE COMMANDS. NO STRIDOR NOTED. RR 20-22. PT PLACED ON COOL MIST MASK AT 40%.
--- NOTE | 2019-07-07 15:53 | NUR ---
PT EXTUBATED AT THIS TIME AND PLACE DON 40% COOL MIST AEROSOL. NO STRIDOR. RN AT BEDSIDE. NO RESPIRATORY DISTRESS. PT HAS STRONG COUGH.
[2019-07-07] MEDS ORDERED: ETOMIDATE (2MG/ML) 20ML VIAL IV ONE ×2 (16:18→17:10)
[2019-07-07] MEDS ORDERED: ROCURONIUM 10MG/ML 10ML VIAL IV ONE ×2 (16:18→17:10)
--- NOTE | 2019-07-07 16:22 | NUR ---
RESP. DISTRESS/ SECRETIONS MD PAGED TO NOTIFY PATIENT IS USING ACCESSORY MUSCLE USE AND IS NOTED TO HAVE UPPER AIRWAY MODERATE, THIN BLOODY SECRETIONS. PT PLACED ON BIPAP. MD IN HOSPITAL TO ASSESS PATIENT.
--- NOTE | 2019-07-07 16:25 | NUR ---
PT PLACED ON BIPAP 16/6 BUR 12 FOR INCREASED WOB. PT HAS COPIOUS BLOODY ORAL SECRETIONS. NO STRIDOR. SPO2 95% ON BIPAP. DR FLYNN AWARE. PREPARING FOR INTUBATION.
--- NOTE | 2019-07-07 17:11 | NUR ---
REINTUBATION PATIENT REMAINED ON BIPAP WITH ACCESSORY MUSCLE USE NOTED. DR. FLYNN SPOKE TO MOTHER AND BROTHER AT BEDSIDE REGARDING PATIENTS CONDITION. FAMILY AGREED FOR REINTUBATION. EXPLAINED TO PATIENT. PT NOTIFIED OF RISKS AND AGREED. PT INTUBATED WITH 8.0/ 23 LIP, AC 14 TV 450 100% PEEP 8. POX 100%. SEE MD NOTES FOR FINDINGS.
--- NOTE | 2019-07-07 17:35 | NUR ---
Family updated on pt status Family of SAM BACA updated on patient's status and condition. All questions and concerns addressed. Daughter Yelena verbalized understanding, daughter aware of bloody secretions noted during extubations and md's finding during reintubation.
--- NOTE | 2019-07-07 19:16 | NUR ---
BEDSIDE REPORT GIVEN UPDATED NOC NURSE ON PLAN OF CARE. PT VENTED/ SEDATED/ AND ON PRESSORS. VSS, PT TOLERATING VENTILATOR WELL AT THIS TIME.
--- NOTE | 2019-07-07 19:30 | NUR ---
OPENING ASSUMED CARE OF PT INTUBATED AND SEDATED. PUPILS REACTIVE TO LIGHT AND SLUGGISH. WITHDRAWALS TO TACTILE STIMULATION, OTHERWISE NONRESPONSIVE. PROPOFOL RUNNING, SEE IV SPREADSHEET. L subclavian 3 lumen, patent and running, dk MIDLINE SL, R RADIAL A LINE WITH GOOD WAVEFORM. RESPIRATIONS EVEN AND UNLABORED, TOLERATING VENTILATOR. SR ON PARCEL POST ORDER CLERK. LEVOPHED RUNNING, SEE IV SPREADSHEET. TPN RUNNING AT 65MLS/HR. ABD LARGE, ROUND, FIRM. FLEXISEAL IN PLACE, PATENT AND DRAINING. DOW CATHETER PATENT AND DRAINING URINE TO GRAVITY. SKIN INTACT. ALL BONY PROMINENCES OFFLOADED WITH PILLOWS. NO PAIN OBSERVED. BED IN LOWEST LOCKED POSITION, IN FULL VIEW OF NURSES STATION. VSS. WILL CONTINUE TO MONITOR.
[2019-07-07] MEDS ORDERED: TPN PER PHARMACY IV NR ×11 (20:00)
[2019-07-08] VITALS (98 sets, daily range): BP systolic 81–176; BP diastolic 37–65
[2019-07-08] MEDS: ALBUTEROL SULF 2.5 MG/0.5ML(0.5%) NEB SOLN NEB SCH ×4 (00:28→19:03)
[2019-07-08] MEDS: NOREPINEPHRINE 8 MG/250ML KIT 250 ML IV SCH (03:30)
[2019-07-08] MEDS: PHENYLEPHRINE INJ 20 MG in SODIUM CHL 0.9% 250 ML IV SCH ×3 (03:51→20:31)
[2019-07-08] MEDS: PROPOFOL 100 ML IV SCH ×3 (03:57→22:02)
[2019-07-08 04:29] LABS: Basophils # (auto) 0.1 uL; Eosinophils # (auto) 0.6 uL
[2019-07-08 04:31] LABS: Basophils % (auto) 0.7 % (0.0-2.0); Hematocrit 23.2 % (36.0-46.0); Hemoglobin 7.7 g/dL (12.2-16.2); Lymphocytes # (auto) 1.9 uL; Lymphocytes % (auto) 13.1 % (10.0-50.0); Mean Corpuscular Hemoglobin 30.2 pg (28.0-32.0); Mean Corpuscular Hgb Conc. 33.4 g/dL (32.0-36.0); Mean Corpuscular Volume 90.3 fL (80.0-100.0); Monocytes # (auto) 1.6 uL; Monocytes % (auto) 10.9 % (0.0-12.0); Neutrophils # (auto) 10.5 uL; Neutrophils % (auto) 71.3 % (37.0-80.0); Platelet Count (auto) 134 10^3/uL (140-450); Red Blood Cells 2.56 10^6/uL (4.0-5.20); White Blood Cell 14.8 10^3/uL (4.4-10.8)
[2019-07-08 04:38] LABS: Red Cell Distribution Width 27.2 % (11.8-14.3)
[2019-07-08 04:47] LABS: Albumin 1.8 g/dL (3.4-5.0); Calcium 7.5 mg/dL (8.5-10.1); Magnesium 2.1 mg/dL (1.6-2.6); Potassium 3.8 mmol/L (3.5-5.1)
[2019-07-08 04:51] LABS: Bilirubin, Total 0.6 mg/dL (0.2-1.0); Phosphorus 3.4 mg/dL (2.5-4.90); Total Protein 5.8 g/dL (6.4-8.2)
[2019-07-08] MEDS: ceFAZolin 2 GM in D5W 5% 100 ML IV SCH ×3 (05:23→21:59)
[2019-07-08] MEDS: InsuLIN REG 1unit/0.01ml Soln (100units/ml) SC SCH ×3 (05:23→17:29)
[2019-07-08] MEDS: ACCU-CHEK COMFORT CURVE STRIP VI SCH ×3 (05:23→17:29)
[2019-07-08] MEDS: LACTULOSE 20Gm/30ML SOLN PR SCH ×4 (06:01→18:02)
--- NOTE | 2019-07-08 10:20 | NUR ---
Assessment Pt is a 63 yr old intubated female. Pt's family was bedside and assessment was conducted through them. Prior to admit, pt lived with her mom and brother. Pt's niece, Gallo, is her caregiver and helped with cooking and transportation. Pt was independent with ADL's and was ambulatory but owns a walker. Pt brought to the hospital due to vomiting up blood. Pt has previous diagnosis of cirrhosis of the liver due to fatty liver, pt is aware of diagnosis and was taking medication for it and seeing a liver specialist. Pt was extubated the day prior but due to health complications, was re-intubated again. Pt receives [employer] income and pt's family has been working on POA paperwork previously and are planning on naming Gallo the POA. Further needs will be assessed closer to d/c. Addendum: 07/09/19 at 0904 by GALLO EVERETT Amended: Links added.
[2019-07-08] MEDS: fentaNYL Drip 2500mCg/250mlNS 250 ML IV SCH (10:22)
--- NOTE | 2019-07-08 10:23 | NUR ---
AT BEDSIDE DR. CANTOR UPDATED ON PATIENTS STATUS. NEW ORDERS IN PLACE. KELLY HOLDER UPDATED ON PATIENTS STATUS AND PLAN OF CARE. NEW ORDERS IN PLACE.
--- NOTE | 2019-07-08 10:38 | NUR ---
RN MED SURG DR. FLYNN UPDATED ON PATIENTS STATUS. NEW ORDERS IN PLACE. MD AWARE PT IS AWAKE, ANSWERING SIMPLE QUESTIONS. PT NOTED TO USE ABD MUSCLE USE. NEW ORDER FOR FENT IVP X1. IF PATIENT IS TO GO FOR PROCEDURE OK TO START FENT. GTT.
[2019-07-08] MEDS ORDERED: fentaNYL CITRATE 100 MCG/2 ML VL IV ONE (10:45)
[2019-07-08] MEDS: MIDAZOLAM DRIP 50 mg/50mL 50 ML IV SCH (10:49)
[2019-07-08] MEDS: PANTOPRAZOLE 40 MG/10 ML VIAL INJ IV SCH ×2 (11:07→21:59)
[2019-07-08] MEDS: fentaNYL CITRATE 100 MCG/2 ML VL IV PRN ×2 (11:21→14:38)
--- NOTE | 2019-07-08 11:29 | NUR ---
U/S TECH AT BEDSIDE.
--- NOTE | 2019-07-08 14:15 | NUR ---
PARCEL POST ORDER CLERK DR. MILLER AT BEDSIDE,. MD NOTIFIED IF BLOOD SECRETIONS NOTED AFTER EXTUBATION. MD VERBALIZED UNDERSTANDING. MD AWARE THERE HAS BEEN NO BLOOD NOTED ORALLY, VIA ETT OR RECTALLY AT THIS TIME. MD EXPLAIN TO FAMILY AT THIS TIME WE WILL MONITOR PATIENT. NO PROCEDURE AT THIS TIME. PT TO BE MONITORED. PER MD NO BLOOD TRANSFUSION AT THIS TIME, PATIENTS LABS TO BE MONITORED. FAMILY VERBALIZED UNDERSTANDING.
[2019-07-08] MEDS: SODIUM FERR GLUC 62.5MG/5ML 125 MG in SODIUM CHL 0.9% 100 ML IV SCH (14:35)
--- NOTE | 2019-07-08 14:45 | NUR ---
NEUROLOGIST DR. VUONG AT BEDSIDE. MD PATIENT WAKES UP TO VOICE, ANSWERS SIMPLE QUESTIONS. PT COUGHING AGAINST VENTILATOR AT THIS TIME WITH FACIAL GRIMACING NOTED. PRN FENT GIVEN FOR COMFORT.
--- NOTE | 2019-07-08 14:46 | NUR ---
U/S FOLLOW UP U/S TECH CALLED STATING DR. NICOLE STATED IF PROCEDURE IS DIAGNOSTIC HE CAN PERFORM FLUID REMOVAL BUT IF PROCEDURE IS THERAPEUTIC THEN THERE IS NOT ENOUGH FLUID TO REMOVE. VERIFIED WITH DR. CANTOR. STATED PROCEDURE IS THERAPEUTIC AT THIS POINT. U/S CALLED TO NOTIFY. NO PARACENTESIS AT THIS TIME. DAUGHTER GALLO AND MOTHER CLIF AT BEDSIDE AWARE.
--- NOTE | 2019-07-08 15:56 | NUR ---
Chip Silo Tender Dr. Awan at bedside updated daughter Yelena and Mother Jonelle on patients current status. Md discussed plan of care and educated patient on patients poor prognosis. Md educated on possible need for tracheostomy in the future and discussed with family to speak about what patients wishes would be if extubation is not possible due to patients comorbidities. Families questions and concerns addressed by .
[2019-07-08] MEDS: DexMEDEtomidine 400 MCG in D5W 5% 96 ML IV SCH (17:29)
--- NOTE | 2019-07-08 19:45 | NUR ---
PM ASSESSMENT PT INT AND SEDATED, RESPONDS TO LIGHT PAINFUL STIMULI. INSERTED RECTAL PROBE, PT TEMP WNL. DOW CATHETER DRAINING VIA GRAVITY W/ LIGHT PAUL URINE. SAFETY PRECAUTIONS IN PLACE. WILL CONTINUE TO MONITOR.
[2019-07-08] MEDS ORDERED: TPN PER PHARMACY IV NR ×12 (20:00)
--- NOTE | 2019-07-08 22:30 | NUR ---
DAUGHTER UPDATED, STATED UNDERSTANDING, STATES SHE MAY NOT WANT TO TRANSFER PT TO ANOTHER HOSPITAL, STATES HER FAMILY IS PUSHING FOR A SECOND OPINION, STATES THEY HAVE NOT MADE A DECISION REGARDING POC.
[2019-07-09] VITALS (97 sets, daily range): BP systolic 59–230; BP diastolic 30–225
[2019-07-09] MEDS: ALBUTEROL SULF 2.5 MG/0.5ML(0.5%) NEB SOLN NEB SCH ×4 (00:46→19:24)
[2019-07-09] MEDS: LACTULOSE 20Gm/30ML SOLN PR SCH ×4 (00:46→18:35)
[2019-07-09] MEDS: ACCU-CHEK COMFORT CURVE STRIP VI SCH ×4 (00:46→18:36)
[2019-07-09 04:01] LABS: Potassium 4.3 mmol/L (3.5-5.1)
[2019-07-09 04:07] LABS: Albumin 1.8 g/dL (3.4-5.0); BUN/Creatinine Ratio 34.8; Bilirubin, Total 0.6 mg/dL (0.2-1.0); Calcium 7.3 mg/dL (8.5-10.1); Magnesium 2.2 mg/dL (1.6-2.6); Phosphorus 4.2 mg/dL (2.5-4.90); Total Protein 5.7 g/dL (6.4-8.2)
[2019-07-09 04:16] LABS: Basophils # (auto) 0.1 uL; Basophils % (auto) 0.5 % (0.0-2.0); Hemoglobin 7.4 g/dL (12.2-16.2); Lymphocytes # (auto) 1.2 uL; Mean Corpuscular Hgb Conc. 32.8 g/dL (32.0-36.0); Monocytes # (auto) 1.1 uL; Nucleated Red Blood Cells % 0.1 %
[2019-07-09 04:18] LABS: Eosinophils # (auto) 0.4 uL; Eosinophils % (auto) 3.1 % (0.0-7.0); Hematocrit 22.4 % (36.0-46.0); Lymphocytes % (auto) 10.6 % (10.0-50.0); Mean Corpuscular Hemoglobin 30.1 pg (28.0-32.0); Mean Corpuscular Volume 91.8 fL (80.0-100.0); Monocytes % (auto) 9.6 % (0.0-12.0); Neutrophils # (auto) 8.8 uL; Neutrophils % (auto) 76.2 % (37.0-80.0); Platelet Count (auto) 103 10^3/uL (140-450); Red Blood Cells 2.44 10^6/uL (4.0-5.20); White Blood Cell 11.6 10^3/uL (4.4-10.8)
[2019-07-09 04:26] LABS: Red Cell Distribution Width 28.7 % (11.8-14.3)
--- NOTE | 2019-07-09 04:30 | NUR ---
BED BATH GIVEN AND FLEXISEAL REPLACED. PT TOLERATED WELL. SAFETY PRECAUTIONS IN PLACE. WILL CONTINUE TO MONITOR.
[2019-07-09] MEDS: PHENYLEPHRINE INJ 20 MG in SODIUM CHL 0.9% 250 ML IV SCH ×3 (04:51→21:31)
[2019-07-09] MEDS: InsuLIN REG 1unit/0.01ml Soln (100units/ml) SC SCH ×4 (06:00→18:00)
[2019-07-09] MEDS: ceFAZolin 2 GM in D5W 5% 100 ML IV SCH ×3 (06:24→22:01)
--- NOTE | 2019-07-09 06:45 | NUR ---
PT DAUGHTER GALLO CALLED, UPDATE GIVEN, STATED UNDERSTANDING.
--- NOTE | 2019-07-09 07:30 | NUR ---
Received report from RON Vann.
--- NOTE | 2019-07-09 08:14 | NUR ---
Respiratory note: ABG not done this morning. Pt is on ETCO2 monitoring per Dr. Awan's orders. No acute changes in status or changes to vent settings. ETCO2 reading within normal limits. Daily ABG not indicated at this time.
[2019-07-09] MEDS: NOREPINEPHRINE 8 MG/250ML KIT 250 ML IV SCH ×2 (09:45→13:02)
[2019-07-09] MEDS: fentaNYL Drip 2500mCg/250mlNS 250 ML IV SCH (10:22)
[2019-07-09] MEDS: MIDAZOLAM DRIP 50 mg/50mL 50 ML IV SCH (10:49)
[2019-07-09] MEDS: PANTOPRAZOLE 40 MG/10 ML VIAL INJ IV SCH ×2 (11:02→22:01)
[2019-07-09] MEDS: PROPOFOL 100 ML IV SCH ×3 (11:04→17:04)
--- NOTE | 2019-07-09 11:50 | NUR ---
Dr. Sheth at bedside- spoke with family regarding patients poor prognosis, possibly trach or taken off the ventilator and allow patient to naturally. The family did state the patient did not want to be trached or be in a [facility] facility.
--- NOTE | 2019-07-09 12:20 | NUR ---
DR. FLYNN AT BEDSIDE: SPOKE WITH FAMILY REGARDING PATIENTS POOR PROGNOSIS, AND OPTIONS. CONTINUE WITH ABG AND CXR IN THE AM AT THIS TIME UNTIL FAMILY DECIDES WHAT GOALS ARE CHOSEN FOR THE PATIENT.
[2019-07-09] MEDS: SODIUM FERR GLUC 62.5MG/5ML 125 MG in SODIUM CHL 0.9% 100 ML IV SCH (12:29)
--- NOTE | 2019-07-09 13:19 | NUR ---
DR. MILLER STATES PATIENT NOT IDEAL CANDIDATE FOR PEG AT THIS TIME, MAY CAUSE COMPLICATIONS.
--- NOTE | 2019-07-09 14:50 | NUR ---
Nutrition Follow-up Notes Wt.: 82.3 kg Pt's intubated, sedated with propofol @ 2.99 ml/hr kcals from fats, no immediate family member at bedside when rounded earlier. Pt's currently on NPO, on TPN @56 ml/hr providing 1320 kcal, 75 gms pro, 1020 NPCs. Pt with adequate PN support d/t high initiation rate delivery of concentrated formula aeb current PN infusion meets 80-92% of est caloric needs and 99-122% of est protein needs with propofol on board Est. Needs ABW 76 [id number] kcal (20-23 kcal/kgBW), 61-76 gms pro (0.8-1.0 gms/kgBW reassessed r/t improving ammonia, severe hypoalb). Will continue to monitor pertinent labs and reassess nutrient need prn Labs: GLU 117 H, BUN 32 H, CA 7.3 L., ALB 1.8 L. Skin: Andrew scale 10, high risk, pt's right left medial sacrum non blanchable redness per electronics technician apprentice. Pl s refer to latest system configuration specialist's notes for further details re: tx plans, GI: Pt had 100 ml BM today per electronics technician apprentice. PES: Increased nutrient needs r/t acute/chronic medical condition aeb intubated, sedated with order of NPO Altered nutrition related lab values r/t current/chronic medical condition aeb elev ammonia, severe hypoalb, hyperglycem,ia, hypocalcemia Obesity r/t food intake more than body requirement aeb 147% IBW, BMI 30.23 kg/m2 and increased body adiposity Will continue to monitor NPO status, PN tolerance, skin status, pertinent labs and weight trend. F/u in 2 to 3 days. Rec.: 1.) If still NPO, continue PN support that meets at least 75% of est nutrient needs. 2.) Advance gradually to oral diet or if GIT's working, consider EN support with Jevity 1.2 Abdelrahman @ 60 ml/hr goal rate as tolerated if medically appropriate. 3.) Refer pt to RD for further nutrition education and weight monitoring upon discharge. 4.) Continue current plan of care.
--- NOTE | 2019-07-09 15:15 | NUR ---
Letter written by Dr. Sheth for family regarding sick family member: unable to fly to [place] due to family member.
[2019-07-09] MEDS: DexMEDEtomidine 400 MCG in D5W 5% 96 ML IV SCH (18:36)
--- NOTE | 2019-07-09 19:04 | NUR ---
REPORT AND ENDORSED CARE TO RON PRITCHARD.
--- NOTE | 2019-07-09 19:10 | NUR ---
OPEN Assumed care of female patient orally intubated, 40mcg/kg/min, on levo of 6mcg/min, does not open eyes when stimulated,pt has delayed grimace and Hypoactive cough and gag noted. active bowel sounds. Pupils both BRISK AND reactive to light. respirations even and unlabored. minimal amount of THIN BLOOD TINGED oral secretions suctioned. pt is on icu monitors. temp 99.3, cooling measures are in place. Donnelly catheter hanging below bladder, patent and draining light marcelo urine with to gravity. r upper arm iv midline,L subclavian triple lumen, r wrist a-line, ivS flushed w/ns, iv ARE patent and dressingS ARE intact, iv siteS appear asymptomatic at this time. optifoam dressing applied to sacrum for safety measures, flexiseal in place, zgaurd to marifer area. Both legs with SCDs. all bony prominences off loaded with pillows for comfort and safety. bed in lowest position, wheels locked, hob45*, pt is in full view of rn station, safety measures are in place. vs are stable at this time. will continue to care for and monitor.
[2019-07-09] MEDS ORDERED: TPN PER PHARMACY IV NR ×12 (20:00)
--- NOTE | 2019-07-09 21:05 | NUR ---
FAMILY AT BEDSIDE
[2019-07-09] MEDS ORDERED: PROPOFOL 100 ML IV ONE (22:46)
[2019-07-10] VITALS (105 sets, daily range): BP systolic 73–175; BP diastolic 40–67
[2019-07-10] MEDS: ALBUTEROL SULF 2.5 MG/0.5ML(0.5%) NEB SOLN NEB SCH ×4 (00:30→18:32)
[2019-07-10 04:21] LABS: Eosinophils # (auto) 0.3 uL; Hemoglobin 7.3 g/dL (12.2-16.2); Lymphocytes # (auto) 0.9 uL; Mean Corpuscular Volume 92.5 fL (80.0-100.0)
[2019-07-10 04:25] LABS: Basophils # (auto) 0.1 uL; Basophils % (auto) 0.6 % (0.0-2.0); Hematocrit 21.8 % (36.0-46.0); Lymphocytes % (auto) 9.2 % (10.0-50.0); Mean Corpuscular Hemoglobin 30.9 pg (28.0-32.0); Mean Corpuscular Hgb Conc. 33.4 g/dL (32.0-36.0); Monocytes % (auto) 10.5 % (0.0-12.0); Neutrophils # (auto) 7.5 uL; Neutrophils % (auto) 76.7 % (37.0-80.0); Platelet Count (auto) 116 10^3/uL (140-450); Red Blood Cells 2.36 10^6/uL (4.0-5.20); White Blood Cell 9.7 10^3/uL (4.4-10.8)
[2019-07-10 04:33] LABS: Red Cell Distribution Width 28.9 % (11.8-14.3)
[2019-07-10 04:36] LABS: Chloride 100 mmol/L (98-107); Potassium 4.5 mmol/L (3.5-5.1); Sodium 131 mmol/L (136-145)
[2019-07-10 04:43] LABS: Alanine Aminotransferase < 6 U/L (13-56); Albumin 1.7 g/dL (3.4-5.0); Alkaline Phosphatase 103 U/L (45-117); Aspartate Aminotransferase 22 U/L (15-37); Bilirubin, Total 0.7 mg/dL (0.2-1.0); Blood Urea Nitrogen 37 mg/dL (7-18); Calcium 7.4 mg/dL (8.5-10.1); Carbon Dioxide 25 mmol/L (21-32); GFR African American 86 mL/min; GFR Non-African American 71 mL/min; Glucose 129 mg/dL (74-106); Magnesium 2.3 mg/dL (1.6-2.6); Phosphorus 3.8 mg/dL (2.5-4.90); Total Protein 5.7 g/dL (6.4-8.2)
[2019-07-10 04:53] LABS: Anion Gap 6 (5-15)
[2019-07-10] MEDS: PHENYLEPHRINE INJ 20 MG in SODIUM CHL 0.9% 250 ML IV SCH ×3 (05:51→22:31)
[2019-07-10] MEDS: InsuLIN REG 1unit/0.01ml Soln (100units/ml) SC SCH ×4 (06:00→18:29)
[2019-07-10] MEDS: LACTULOSE 20Gm/30ML SOLN PR SCH ×4 (06:00→18:29)
[2019-07-10] MEDS: ceFAZolin 2 GM in D5W 5% 100 ML IV SCH ×3 (06:00→22:00)
[2019-07-10] MEDS: ACCU-CHEK COMFORT CURVE STRIP VI SCH ×4 (06:00→18:30)
--- NOTE | 2019-07-10 07:00 | NUR ---
Report received from RON Contreras.
--- NOTE | 2019-07-10 07:30 | NUR ---
Dr. Lott at bedside: Patient responds to verbal stimuli.
[2019-07-10] MEDS: PROPOFOL 100 ML IV SCH (08:38)
[2019-07-10] MEDS: NOREPINEPHRINE 8 MG/250ML KIT 250 ML IV SCH (08:39)
--- NOTE | 2019-07-10 09:10 | NUR ---
Dr. Awan at bedside: ABG, CXR in the am -CT chest ordered today
--- NOTE | 2019-07-10 10:15 | NUR ---
Patient transported to radiology for CT chest.
[2019-07-10] MEDS: fentaNYL Drip 2500mCg/250mlNS 250 ML IV SCH (10:22)
[2019-07-10] MEDS: PANTOPRAZOLE 40 MG/10 ML VIAL INJ IV SCH ×2 (10:40→22:00)
[2019-07-10] MEDS: MIDAZOLAM DRIP 50 mg/50mL 50 ML IV SCH (10:49)
--- NOTE | 2019-07-10 11:33 | NUR ---
Dr. Sheth at bedside: CT abdomen ordered for tomorrow if ascites consult Vincenzoer for paracentesis.
[2019-07-10] MEDS: SODIUM FERR GLUC 62.5MG/5ML 125 MG in SODIUM CHL 0.9% 100 ML IV SCH (13:49)
[2019-07-10] MEDS ORDERED: SODIUM CHLORIDE 0.9 % NEB SOLN 3ML NEB ONE (14:09)
--- NOTE | 2019-07-10 15:15 | NUR ---
Patient having rectal bleeding notified Dr. Sheth: Ordered H&H Q6hrs, shailesh one and sent to lab. Discontinue rectal tube for now and if bleeding stops reinsert flexiseal. Call hospitalist if HGB <7 for PRBC's. Re-consult Dr. Lehman.
--- NOTE | 2019-07-10 15:50 | NUR ---
Spoke with Dr. Lehman: Patient to have colonoscopy tomorrow and 3 tap water enemas starting vice president lending and morning shift. Consent completed.
--- NOTE | 2019-07-10 15:52 | NUR ---
re-assessment Per consult daughter Yelena wants to speak with social service. I called Yelena and she informed me that she wants to speak about medical options for her mother. I informed Yelena that she would have to speak with the MD regarding patients medical outcome and options. Yelena verbalized understanding. Addendum: 07/10/19 at 1554 by Shira Joaquin Amended: Links added.
[2019-07-10 17:17] LABS: Hematocrit 18.6 % (36.0-46.0)
[2019-07-10 17:58] LABS: INR 1.23 (0.9-1.15)
[2019-07-10] MEDS: NOREPINEPHRINE BITARTRATE 32 MG in D5W 5% 218 ML IV SCH (18:28)
[2019-07-10] MEDS: DexMEDEtomidine 400 MCG in D5W 5% 96 ML IV SCH (18:30)
--- NOTE | 2019-07-10 19:07 | NUR ---
Report and endorsed care to RON Contreras. Addendum: 07/10/19 at 1908 by Lynnette Subramanian RN Blood is ready to by picked up.
--- NOTE | 2019-07-10 19:15 | NUR ---
OPEN Assumed care of female patient orally intubated, propofol 25mcg/kg/min, on levo of 30mcg/min, does not open eyes when stimulated,pt has delayed grimace and Hypoactive cough and gag noted. active bowel sounds. Pupils both BRISK AND reactive to light. respirations even and unlabored. minimal amount of THIN BLOOD TINGED oral secretions suctioned. pt is on icu monitors. Donnelly catheter hanging below bladder, patent and draining light marcelo urine with to gravity. r upper arm iv midline does not flush.L subclavian triple lumen, r wrist a-line, ivS flushed w/ns, ivs ARE patent and dressingS ARE intact, iv siteS appear asymptomatic at this time. optifoam dressing applied to sacrum for safety measures, flexiseal in place, zgaurd to marifer area. Both legs with SCDs. all bony prominences off loaded with pillows for comfort and safety. bed in lowest position, wheels locked, hob45*, pt is in full view of rn station, safety measures are in place. vs are stable at this time. will continue to care for and monitor.
[2019-07-10] MEDS ORDERED: TPN PER PHARMACY IV NR ×12 (20:00)
[2019-07-10] MEDS ORDERED: PROPOFOL 100 ML IV ONE (20:08)
--- NOTE | 2019-07-10 20:30 | NUR ---
family praying at bedside
--- NOTE | 2019-07-10 21:00 | NUR ---
bloody stool pt saturated lenins with what appears dark blood. pt cleaned lenins changed. vs are stable at this time. pt tolerated care.
--- NOTE | 2019-07-10 21:15 | NUR ---
1 of 2 prbc started
--- NOTE | 2019-07-10 23:00 | NUR ---
daughter called pt daughter called provided pw, daughter was updated on pts status. no further questions or concerns at this time.
--- NOTE | 2019-07-10 23:43 | NUR ---
1st prbc transfused pts vitals are stable, pt tolerated care and transfusion.
[2019-07-11] VITALS (84 sets, daily range): BP systolic 68–183; BP diastolic 33–132
--- NOTE | 2019-07-11 | NUR ---
rectal lactulose held lactulose held, rectal tube removed per md orders and a new rectal tube is instructed not to be put back in due to rectal bleeding.
[2019-07-11] MEDS: ALBUTEROL SULF 2.5 MG/0.5ML(0.5%) NEB SOLN NEB SCH ×3 (00:08→11:44)
--- NOTE | 2019-07-11 00:20 | NUR ---
bs/ insulin given after checking the bs it was determined that insulin was needed. insulin was given using the prescribed bs insulin protocol.
--- NOTE | 2019-07-11 00:50 | NUR ---
Respiratory note: PT CHANGED TO HEATED WIRE CIRCUIT, UNEVENTFUL. VENT V17 SST'D AND PASSED. VENT PLUGGED INTO RED OUTLET, ALARMS ON AND AUDIBLE. PT PLACED BACK ON PREVIOUS SETTINGS.
--- NOTE | 2019-07-11 01:00 | NUR ---
2nd prbc started
[2019-07-11] MEDS: PROPOFOL 100 ML IV SCH ×3 (02:19→14:24)
--- NOTE | 2019-07-11 03:32 | NUR ---
2nd prbc transfused pts vitals are stable, pt tolerated care and transfusion.
[2019-07-11 05:02] LABS: Basophils # (auto) 0.1 uL; Red Blood Cells 2.74 10^6/uL (4.0-5.20)
[2019-07-11 05:06] LABS: Basophils % (auto) 0.7 % (0.0-2.0); Eosinophils # (auto) 0.4 uL; Eosinophils % (auto) 2.6 % (0.0-7.0); Hematocrit 24.4 % (36.0-46.0); Hemoglobin 8.3 g/dL (12.2-16.2); Lymphocytes % (auto) 13.5 % (10.0-50.0); Mean Corpuscular Hemoglobin 30.2 pg (28.0-32.0); Mean Corpuscular Hgb Conc. 33.8 g/dL (32.0-36.0); Mean Corpuscular Volume 89.3 fL (80.0-100.0); Monocytes # (auto) 2.1 uL; Monocytes % (auto) 14.4 % (0.0-12.0); Neutrophils % (auto) 68.8 % (37.0-80.0); Nucleated Red Blood Cells % 0.1 %; Platelet Count (auto) 177 10^3/uL (140-450); White Blood Cell 14.6 10^3/uL (4.4-10.8)
[2019-07-11 05:31] LABS: Red Cell Distribution Width 26.1 % (11.8-14.3)
--- NOTE | 2019-07-11 05:50 | NUR ---
IV removal r upper arm midline IV DC'd with clean technique, catheter fully intact. Pressure dressing applied to site. Patient tolerated procedure.
[2019-07-11] MEDS: ACCU-CHEK COMFORT CURVE STRIP VI SCH ×4 (05:51→17:23)
[2019-07-11] MEDS: LACTULOSE 20Gm/30ML SOLN PR SCH ×4 (05:51→17:23)
[2019-07-11 05:54] LABS: Albumin 1.6 g/dL (3.4-5.0); BUN/Creatinine Ratio 46.1; Bilirubin, Total 0.9 mg/dL (0.2-1.0); Calcium 7.2 mg/dL (8.5-10.1); Magnesium 2.3 mg/dL (1.6-2.6); Phosphorus 2.9 mg/dL (2.5-4.90); Total Protein 5.4 g/dL (6.4-8.2)
[2019-07-11] MEDS: InsuLIN REG 1unit/0.01ml Soln (100units/ml) SC SCH ×4 (06:00→17:23)
[2019-07-11] MEDS: ceFAZolin 2 GM in D5W 5% 100 ML IV SCH ×2 (06:00→14:23)
[2019-07-11 06:01] LABS: Potassium 5.6 mmol/L (3.5-5.1)
[2019-07-11] MEDS: PHENYLEPHRINE INJ 20 MG in SODIUM CHL 0.9% 250 ML IV SCH (06:51)
--- NOTE | 2019-07-11 07:00 | NUR ---
Report received from RON Contreras.
--- NOTE | 2019-07-11 07:18 | NUR ---
critical lab k 5.6, hospitalist paged, awaiting call back
--- NOTE | 2019-07-11 07:54 | NUR ---
[facility]6: unable to give oral and rectal medication due to active bleeding, Albuterol ordered for high potassium-repeat potassium in 4hours.
[2019-07-11] MEDS ORDERED: ALBUTEROL SULF 2.5 MG/0.5ML(0.5%) NEB SOLN NEB ONE (08:00)
[2019-07-11] MEDS ORDERED: ALBUTEROL SULF 2.5 MG/0.5ML(0.5%) NEB SOLN ONE (08:09)
--- NOTE | 2019-07-11 08:21 | NUR ---
Dr. Lott at bedside- patient responds to verbal stimuli.
--- NOTE | 2019-07-11 08:50 | NUR ---
Dr. Lehman at bedside performing a scheduled colonoscopy: Found diverticulosis, and was bleeding too much to visualize where bleeding is coming from. Patient started on Octreotide.
[2019-07-11] MEDS ORDERED: AMINO ACID INFUSION IN D10W 1,000 ML IV NR (09:00)
[2019-07-11] MEDS ORDERED: OCTREOTIDE ACETATE 500 MCG in SODIUM CHL 0.9% 99 ML IV SCH (09:15)
[2019-07-11] MEDS ORDERED: OCTREOTIDE ACETATE 100 MCG in SODIUM CHL 0.9% 50 ML IV ONE (09:15)
[2019-07-11] MEDS: fentaNYL Drip 2500mCg/250mlNS 250 ML IV SCH ×2 (10:22→11:55)
--- NOTE | 2019-07-11 10:30 | NUR ---
Dr. Henriquez at bedside: Spoke with daughter regarding terminal wean due to poor prognosis - waiting for daughter to gather family and she will let me know when she is ready.
[2019-07-11] MEDS ORDERED: SODIUM BICARBONATE 8.4% INJ 50ML SYRINGE IV ONE (10:45)
[2019-07-11] MEDS ORDERED: CALCIUM GLUC 4.65meq/50ml D5AE 50 ML IV ONE (10:45)
[2019-07-11] MEDS ORDERED: FUROSEMIDE 20 MG/2 ML VIAL IV SCH (10:45)
[2019-07-11] MEDS: MIDAZOLAM DRIP 50 mg/50mL 50 ML IV SCH (10:49)
--- NOTE | 2019-07-11 10:54 | NUR ---
WOUND CARE NOTE: New wound care request received regarding new skin integrity issue noted by bedside nurse regarding "lip and tongue sore". Patient continue resting on air bed in ICU Rm. 104. Patient is still intubated, and mechanically ventilated. Patient appears to be in no pain using Sargent Frost Faces Pain Scale. Patient developed mucosal ulcer to tongue possible medical coding technician related (ET tube). In conversation with patient's nurse, RON Church, to notify hospitalist, she added that R.T. is aware and noted the sore. Patient's receiving routine oral hygiene and RT repositioning ET tube routinely. Patient is due for full reevaluation on Friday 07/13. RECOMMEND: Repositioning of medical coding technician routinely
[2019-07-11] MEDS: PANTOPRAZOLE 40 MG/10 ML VIAL INJ IV SCH (10:56)
[2019-07-11] MEDS: NOREPINEPHRINE BITARTRATE 32 MG in D5W 5% 218 ML IV SCH (11:00)
[2019-07-11] MEDS ORDERED: PHENYLEPHRINE INJ 80 MG in SODIUM CHL 0.9% 250 ML IV SCH (11:01)
[2019-07-11] MEDS: SODIUM FERR GLUC 62.5MG/5ML 125 MG in SODIUM CHL 0.9% 100 ML IV SCH (11:42)
[2019-07-11 11:53] LABS: Hematocrit 24.3 % (36.0-46.0)
--- NOTE | 2019-07-11 14:52 | NUR ---
Patient started on Spenser and fentanyl for comfort.
--- NOTE | 2019-07-11 15:09 | NUR ---
Nutrition Follow-up Notes Wt.: 83.5 kg Pt's intubated, sedated with propofol @ 11.975 ml/hr provding 316 kcals from fats, no immediate family member at bedside when rounded earlier. Pt's currently on NPO, on TPN @50 ml/hr providing 1130 kcal, 70 gms pro, 850 NPCs. Pt with adequate PN support d/t high initiation rate delivery of concentrated formula aeb current PN infusion meets 82-95% of est caloric needs and 92-114% of est protein needs with propofol on board Est. Needs ABW 76 [id number] kcal (20-23 kcal/kgBW), 61-76 gms pro (0.8-1.0 gms/kgBW reassessed r/t improving ammonia, severe hypoalb). Will continue to monitor pertinent labs and reassess nutrient need prn Labs: GLU 147 H, BUN 47 H, CA 7.2 L, AMMONIA 81 H Skin: Andrew scale 10, high risk, pt's right left medial sacrum non blanchable redness per documentation lead. Pl s refer to latest outside sales advertising executive's notes for further details re: tx plans, GI: Pt had 100 ml BM today per documentation lead. PES: Increased nutrient needs r/t acute/chronic medical condition aeb intubated, sedated with order of NPO Altered nutrition related lab values r/t current/chronic medical condition aeb elev ammonia, severe hypoalb, hyperglycem,ia, hypocalcemia Obesity r/t food intake more than body requirement aeb 147% IBW, BMI 30.23 kg/m2 and increased body adiposity Will continue to monitor NPO status, PN tolerance, skin status, pertinent labs and weight trend. F/u in 2 to 3 days. Rec.: 1.) If still NPO, continue PN support that meets at least 75% of est nutrient needs. 2.) Advance gradually to oral diet or if GIT's working, consider EN support with Jevity 1.2 Abdelrahman @ 60 ml/hr goal rate as tolerated if medically appropriate. 3.) Refer pt to RD for further nutrition education and weight monitoring upon discharge. 4.) Continue current plan of care.
[2019-07-11] MEDS ORDERED: LORazepam 2MG/ML-1ML VIAL IV PRN ×2 (16:45→18:45)
[2019-07-11] MEDS ORDERED: MORPHINE SULF INJ 2 MG/ML SYRINGE 1ML IV PRN ×2 (16:45→18:45)
--- NOTE | 2019-07-11 17:24 | NUR ---
Waiting for last family member to see patient- then daughter will tell us when they are ready for us to extubate patient. All the family is gathered outside.
--- NOTE | 2019-07-11 17:45 | NUR ---
Bed bath given with the basin- daughter at bedside.
--- NOTE | 2019-07-11 17:50 | NUR ---
Patient terminally extubated per md order at this time with no complications
--- NOTE | 2019-07-11 17:50 | NUR ---
Patient terminally extubated at 1750- daughter at bedside. All family allowed inside room after extubating.
--- NOTE | 2019-07-11 18:55 | NUR ---
Report and endorsed care to RON Bianchi.
[2019-07-11] MEDS ORDERED: FUROSEMIDE 20 MG/2 ML VIAL IV ONE (19:00)
--- NOTE | 2019-07-11 19:00 | NUR ---
Opening note Received pt terminally extubated with family at bedside. Agonal breathing noted. Pt unresponsive. Fentanyl gtt at 100mcg per md request. Pt does not appear to be in distress.
[2019-07-11] MEDS ORDERED: TPN PER PHARMACY IV NR ×8 (20:00)
--- NOTE | 2019-07-11 20:30 | NUR ---
metal bonder message left with integration manager metal bonder per request of family.
--- NOTE | 2019-07-11 21:23 | NUR ---
Return call from chaplain evelin will be arriving shortly.
[2019-07-12] VITALS (14 sets, daily range): BP systolic 50–104; BP diastolic 32–70
--- NOTE | 2019-07-12 11:13 | NUR ---
AT BEDSIDE DR. MILLER AT BEDSIDE TO ASSESS PATIENT AND UPDATED FAMILY ON PLAN OF CARE.
--- NOTE | 2019-07-12 13:07 | NUR ---
PAGED DR. ZELAYA PAGED. AWAITING CALL BACK.
--- NOTE | 2019-07-12 13:15 | NUR ---
AT BEDSIDE DR. ZELAYA AT BEDSIDE TO PRONOUNCE TIME OF .
--- NOTE | 2019-07-12 13:32 | NUR ---
[facility] CALLED. REFERENCE NUMBER: [id number]
--- NOTE | 2019-07-12 13:48 | NUR ---
DRILL GRINDER CALL CALLED DRILL GRINDER. AWAITING CALL BACK.
--- NOTE | 2019-07-12 14:35 | NUR ---
HEEL WHEELER CLEARED HEEL WHEELER CALLED BACK. CLEARED PATIENT. . SPOKE TO VAHID COX.
--- NOTE | 2019-07-12 18:00 | NUR ---
POST MORTEM PT TRANSPORTED TO [facility] [place] VIA BED, ACCOMPANIED BY SECURITY. FAMILY WILL CALL IN AM WITH FINAL DECISION ON MORTUARY.
== END 2019-07-12 13:15 | disposition expired | DRG 207 ==
LOC: EDBD 08:53 → ER 08:59 → TELE 09:00 → ICU WEST 06-30 18:21
PROVIDERS: ADMIT Internal Medicine; ATTEND Internal Medicine Nephrology
PROC: 5A1955Z Respiratory Ventilation, Greater than 96 Consecutive Hours (ICD-10-PCS; 2019-06-27)
PROC: 30233N1 Transfusion of Nonautologous Red Blood Cells into Peripheral Vein, Percutaneous Approach (ICD-10-PCS; 2019-06-27)
PROC: 0BH17EZ Insertion of Endotracheal Airway into Trachea, Via Natural or Artificial Opening (ICD-10-PCS; 2019-06-27)
PROC: 06L38CZ Occlusion of Esophageal Vein with Extraluminal Device, Via Natural or Artificial Opening Endoscopic (ICD-10-PCS; 2019-06-27)
PROC: 30233K1 Transfusion of Nonautologous Frozen Plasma into Peripheral Vein, Percutaneous Approach (ICD-10-PCS; principal; 2019-06-27 09:45)
PROC: 03HY32Z Insertion of Monitoring Device into Upper Artery, Percutaneous Approach (ICD-10-PCS; 2019-07-01)
PROC: 4A133B1 Monitoring of Arterial Pressure, Peripheral, Percutaneous Approach (ICD-10-PCS; 2019-07-01)
PROC: 4A133J1 Monitoring of Arterial Pulse, Peripheral, Percutaneous Approach (ICD-10-PCS; 2019-07-01)
PROC: 0DJD8ZZ Inspection of Lower Intestinal Tract, Via Natural or Artificial Opening Endoscopic (ICD-10-PCS; 2019-07-01)
PROC: 5A1945Z Respiratory Ventilation, 24-96 Consecutive Hours (ICD-10-PCS; 2019-07-07)
PROC: 0BH17EZ Insertion of Endotracheal Airway into Trachea, Via Natural or Artificial Opening (ICD-10-PCS; 2019-07-07)
PROC: 5A09357 Assistance with Respiratory Ventilation, Less than 24 Consecutive Hours, Continuous Positive Airway Pressure (ICD-10-PCS; 2019-07-07)
DX: J96.01 Acute respiratory failure with hypoxia (principal); E43 Unspecified severe protein-calorie malnutrition; G93.41 Metabolic encephalopathy; I85.01 Esophageal varices with bleeding; J69.0 Pneumonitis due to inhalation of food and vomit; N17.0 Acute kidney failure with tubular necrosis; D62 Acute posthemorrhagic anemia; K76.6 Portal hypertension; K92.0 Hematemesis; R18.8 Other ascites; Z99.11 Dependence on respirator [ventilator] status; D68.9 Coagulation defect, unspecified; Z66 Do not resuscitate; D69.59 Other secondary thrombocytopenia; E66.9 Obesity, unspecified; Z68.37 Body mass index [BMI] 37.0-37.9, adult; E83.39 Other disorders of phosphorus metabolism; I11.9 Hypertensive heart disease without heart failure; K44.9 Diaphragmatic hernia without obstruction or gangrene; K57.30 Diverticulosis of large intestine without perforation or abscess without bleeding; K72.90 Hepatic failure, unspecified without coma; K74.60 Unspecified cirrhosis of liver; K80.20 Calculus of gallbladder without cholecystitis without obstruction; Z96.652 Presence of left artificial knee joint; R57.1 Hypovolemic shock; A49.01 Methicillin susceptible Staphylococcus aureus infection, unspecified site; Z83.3 Family history of diabetes mellitus; Z90.710 Acquired absence of both cervix and uterus
CPT/HCPCS: 31500; 36415; 36556; 36600; 70450; 71045; 71250; 74176; 76700; 76705; 80053; 80074; 80202; 81001; 82040; 82140; 82390; 82570; 82805; 82962; 83036; 83540; 83550; 83690; 83735; 84100; 84132; 84156; 84478; 85007; 85014; 85018; 85025; 85027; 85610; 85730; 86038; 86850; 86900; 86901; 86920; 87040; 87070; 87076; 87077; 87081; 87186; 87205; 93005; 94002; 94003; 94640; 94644; 94660; 94761; 95819; 99291; A4618; C9113; G0378; J0330; J0610; J0690; J1756; J1815; J1956; J2250; J2704; J3430; J3480; J3490; J7060; J7131